=== PATIENT | male | born 1960 | race Caucasian/White ===

== ENCOUNTER 2020-06-17 10:25 | Outpatient (REF) | payer OTHER, SELFPAY ==
[2020-06-17 10:57] LABS: MANUAL DIFF FLAG NO
[2020-06-17 11:04] LABS: Basophils Percent Auto 0.3 % (0-2); Eosinophils Absolute Auto 0.4 X10*3/uL (0.0-0.4); Eosinophils Percent Auto 3.3 % (0-4); Hematocrit 49.2 % (42-52); Hemoglobin 15.7 g/dl (14.0-18.0); Imm Gran Abs Auto 0.02 X10*3/uL (0.00-0.03); Imm Gran Pct Auto 0.2 % (0.0-0.4); Lymphocytes Absolute Auto 4.5 X10*3/uL (1.2-4.9); Lymphocytes Percent Auto 39.8 % (20-40); Mean Corpuscular HGB Conc 31.9 g/dl (31.0-36.0); Mean Corpuscular Hemoglobin 29.1 pg (27.0-33.0); Mean Corpuscular Volume 91.1 fL (80-98); Mean Platelet Volume 10.6 fL (9.4-12.4); Monocytes Absolute Auto 0.9 X10*3/uL (0.1-1.2); Monocytes Percent Auto 7.8 % (2-11); Neutrophils Absolute Auto 5.5 X10*3/uL (2.0-8.3); Neutrophils Percent Auto 48.6 % (45-73); Platelet Count 239 X10*3/uL (160-400); Red Cell Distribution Width 13.1 % (11.0-16.0); White Blood Count 11.3 X10*3/uL (4.8-10.8)
[2020-06-17 11:29] LABS: Glucose Urine UA NEG (NEG); Leukocyte Esterase Urine NEG (NEG); Nitrite Urine NEG (NEG); PH 5.5 (5.0-8.0); Specific Gravity - Urine >= 1.030 (1.005-1.025); Urine Blood NEG (NEG); Urine Ketones NEG (NEG); Urine Protein NEG (NEG-TRACE)
[2020-06-17 11:32] LABS: Appearance Urine CLEAR; Color Urine YELLOW
[2020-06-17 11:52] LABS: PSA,Total (Free>4and<10) 2.39 ng/mL (0.00-4.00)
[2020-06-17 11:55] LABS: Alanine Aminotransferase 42 U/L (0-40); Albumin Level 4.4 g/dL (3.5-5.0); Alkaline Phosphatase 100 U/L (39-117); Anion Gap 14 (12-20); Aspartate Amino Transferase 30 U/L (5-37); Bilirubin Total 0.7 mg/dL (0.0-1.0); Blood Urea Nitrogen 18 mg/dL (9-16); Calcium 9.3 mg/dL (8.4-10.2); Carbon Dioxide 27 mmol/L (22-29); Chloride 104 mmol/L (96-108); Cholesterol 159 mg/dL; Estimated Glomerular Filt Rate > 60; Glucose Fasting 84 mg/dL (60-99); HDL Cholesterol 47 mg/dL; LDL Cholesterol Calculated 94 mg/dl; Potassium 4.4 mmol/L (3.3-5.1); Sodium 141 mmol/L (135-145); Total Protein 6.9 g/dL (6.5-8.0); Triglycerides 93 mg/dL
[2020-06-17 11:59] LABS: Creatinine Urine 141.21 mg/dL; Microalbum/Creatinine Ratio Ur 8.4 ug/mg cr
[2020-06-17 12:06] LABS: Estimated Average Glucose 117 mg/dL; Hemoglobin A1c % 5.7 %
[2020-06-17 13:03] LABS: Reflex LDLD? No
== END 2020-06-17 10:26 | disposition home or self-care (01) ==
LOC: HO.LNP 10:25
PROVIDERS: PCP Internal Medicine; Visit Provider Internal Medicine
DX: Z00.00 Encounter for general adult medical examination without abnormal findings (principal); Z12.5 Encounter for screening for malignant neoplasm of prostate; I10 Essential (primary) hypertension; E78.00 Pure hypercholesterolemia, unspecified; R73.03 Prediabetes
CPT/HCPCS: 80053; 80061; 81003; 82043; 83036; 84153; 85025

== ENCOUNTER 2020-12-16 10:25 | Outpatient (REF) | payer OTHER, SELFPAY ==
[2020-12-16 10:44] LABS: Alanine Aminotransferase 33 U/L (0-40); Albumin Level 4.2 g/dL (3.5-5.0); Alkaline Phosphatase 94 U/L (39-117); Aspartate Amino Transferase 21 U/L (5-37); Bilirubin Direct 0.2 mg/dL (0.0-0.5); Bilirubin Total 0.6 mg/dL (0.0-1.0); Cholesterol 143 mg/dL; Glucose Fasting 105 mg/dL (60-99); HDL Cholesterol 38 mg/dL; LDL Cholesterol Calculated 84 mg/dl; Total Protein 6.6 g/dL (6.5-8.0); Triglycerides 107 mg/dL
[2020-12-16 11:10] LABS: Estimated Average Glucose 120 mg/dL; Hemoglobin A1c % 5.8 %
[2020-12-16 11:34] LABS: Reflex LDLD? No
== END 2020-12-16 10:26 | disposition home or self-care (01) ==
LOC: HO.LNP 10:25
PROVIDERS: Visit Provider Internal Medicine
DX: E78.00 Pure hypercholesterolemia, unspecified (principal); R73.03 Prediabetes
CPT/HCPCS: 80061; 80076; 82947; 83036

== ENCOUNTER 2021-02-12 10:07 | Emergency (ER) | payer OTHER, SELFPAY ==
--- NOTE | 2021-02-12 | ECG_ITS ---
Test Reason : CHEST PAIN Blood Pressure : / mmHG Vent. Rate : 083 BPM Atrial Rate : 083 BPM P-R Int : 172 ms QRS Dur : 074 ms QT Int : 354 ms P-R-T Axes : 041 056 041 degrees QTc Int : 415 ms Normal sinus rhythm Normal ECG No previous ECGs available Referred By: Generic ED Physician Electronically Signed By:HELEN VALENZUELA
--- NOTE | ~2021-02-12 | XR_ITS ---
EXAMINATION: XR CHEST CLINICAL INFORMATION: Chest pain COMPARISON: None TECHNIQUE: 2 views of the chest were obtained. FINDINGS: There is no evidence of acute parenchymal disease, pneumothorax, or pleural effusion. Heart normal size. No evidence of pulmonary edema. XR/XR chest 2V IMPRESSION: No acute disease.
[2021-02-12 10:29] VITALS: BP 148/81; PULSE 90; RESP 18; TEMP 36.8; O2SAT 96; BMI 37.9
--- NOTE | 2021-02-12 10:52 | ED.CHESTPAIN ---
HPI - Chest Pain General Chief Complaint: Chest Pain Stated Complaint: chest pain Time Seen by Provider: 02/12/21 10:45 Source: patient Mode of arrival: ambulatory Limitations: no limitations History of Present Illness HPI narrative: 60-year-old male past medical history significant for hypertension hypercholesterolemia presenting to the emergency department with complaints of chest pain/tightness x5 days. Patient tells me that the chest pain started 5 days ago when he was driving, he states it started as a stabbing pain, but since then has felt like chest tightness. It is intermittent in nature, it does not radiate. He tells me it is a boring discomfort. He tells me right now he is not experiencing any pain but he does feel slight pressure to the right side of his chest. Patient has no cardiac history, no significant family history. Patient smokes 1 pack of cigarettes per week. He has no other complaints at this time. He denies shortness of breath, fevers, chills, weakness, lower extremity swelling, dizziness, headache. MD complaint: other (chest pressure ) Onset (ago): day(s) Timing of current episode: episodic Prior episodes: No Onset: during rest Pain location: right chest Pain radiation: none Severity: mild Quality: tightness Relieving factors: nothing Exacerbating factors: nothing Treatment prior to arrival: none Related Data Home Medications Medication Instructions Recorded Confirmed atorvastatin 40 mg tablet 40 mg PO DAILY 06/21/20 lisinopril 10 1 tab PO DAILY 06/21/20 mg-hydrochlorothiazide 12.5 mg tablet Previous Rx's Medication Instructions Recorded prednisone 20 mg tablet 20 mg PO DAILY 9 Days #18 tab 06/21/20 Allergies Allergy/AdvReac Type Severity Reaction Status Date / Time No Known Allergies Allergy Unverified 11/27/19 15:43 Review of Systems Review of Systems: Constitutional : No Weight loss, No Fever, No Chills, No Fatigue, No Malaise ENT/Mouth : No sore throat, No Rhinorrhea Eyes: No Eye Pain, No Swelling, No Redness Cardiovascular : + Chest Pain, No SOB, No Dyspnea on Exertion, No Orthopnea, No Edema, No Palpitations Respiratory : No Cough, No Sputum, No Wheezing Gastrointestinal : No Nausea, No Vomiting, No Diarrhea, No Constipation, No abdominal Pain, No Hematochezia, No Melena Genitourinary : No Dysuria, No Urinary Frequency, No Hematuria, Musculoskeletal : No joint pain, No Myalgias, No Joint Swelling Skin : No Skin Lesions, No rash Neuro : No Weakness, No Numbness, No Dizziness, No Headache All other systems reviewed and are negative [facility] Past Medical History Attestation statement: The following information was validated with the patient. Source: old records reviewed and nursing notes reviewed Medical History HTN (hypertension) Social History Social History Patient Tobacco Use Status: Current everyday Tobacco user Use of substances other than those prescribed or required for medical reasons: No Advance Directives: No Advance Directives Information Provided: Yes Physical Exam Vital Signs: Vital Signs: Last Vital Signs Temp 98.2 F 02/12/21 10:29 Pulse 90 02/12/21 10:29 Resp 18 02/12/21 10:29 BP 148/81 H 02/12/21 10:29 Pulse Ox 96 02/12/21 10:29 BMI result Body Mass Index 37.9 Vss Appearance: Alert.? Oriented X3.? No acute distress.? Head: Normocephalic, atraumatic, no step-offs or deformities Eyes: Pupils equal, round and reactive to light.? ENT: Pharynx normal.? Neck: Normal inspection.? Neck supple.? CVS: Normal heart rate and rhythm.? Pulses normal.? Respiratory: No respiratory distress.? Breath sounds normal.? Abdomen: Soft and nontender.? Skin: Skin warm and dry.? Normal skin color.? Normal skin turgor.? Extremities: No lower extremity edema.? No calf ttp. 5/5 strength to bilateral upper and lower extremities Back: No midline tenderness, no C-spine tenderness, full range of motion, no CVA tenderness bilaterally Neuro: Oriented X 3.? No motor deficit.? No sensory deficit. Course Reevaluation(s) Reevaluation #1: EKG with no signs of acute ischemia. No leukocytosis, no anemia. No electrolyte abnormalities. Troponin negative, BNP negative. This is likely chest pain not associated with acute coronary syndrome and not cardiac. This could be an anterior chest wall strain. Patient not having pain at this time. He should follow-up with his PCP. Safe for discharge home. Time: 10:57 Reevaluation #2: Chest x-ray negative. At this time patient is not complaining of chest pain. Safe for discharge home Time: 12:51 MDM - Chest Pain MDM Narrative Medical decision making narrative: 1050 60 YO M pmhx HTN, hypercholesterolemia presenting to the emergency department with complaints of intermittent right-sided chest pain that is nonradiating, and boring in nature X5 days. At this time he is having chest pressure no pain. Physical examination is benign Plan at this time is to obtain basic labs, troponin, BNP, EKG. Medical Records Data Attestation: I reviewed the patient's medical records. Lab Data Attestation: I reviewed the patient's lab results. Result diagrams: 02/12/21 11:14 02/12/21 11:14 Labs: Lab Results 02/12/21 02/12/21 02/12/21 Range/Units 11:14 11:14 11:14 WBC 9.8 (4.8-10.8) X10*3/uL RBC 5.05 (4.60-5.80) X10*6/uL Hgb 15.0 (14.0-18.0) g/dl Hct 45.4 (42.0-52.0) % MCV 89.9 (80.0-98.0) fL MCH 29.7 (27.0-33.0) pg MCHC 33.0 (31.0-36.0) g/dl RDW 13.1 (11.0-16.0) % Plt Count 228 (160-400) X10*3/uL MPV 9.9 (9.4-12.4) fL Immature Gran % (Auto) 0.2 (0.0-0.4) % Neut % (Auto) 71.4 (45-73) % Lymph % (Auto) 18.5 L (20-40) % Thomas % (Auto) 7.0 (2-11) % Eos % (Auto) 2.8 (0-4) % Baso % (Auto) 0.1 (0-2) % Lymph # (Auto) 1.8 (1.2-4.9) X10*3/uL Thomas # (Auto) 0.7 (0.1-1.2) X10*3/uL Eos # (Auto) 0.3 (0.0-0.4) X10*3/uL Baso # (Auto) 0.0 (0.0-0.2) X10*3/uL Abs Immat Gran (auto) 0.02 (0.00-0.03) X10*3/uL Absolute Neuts (auto) 7.0 (2.0-8.3) x10*3/uL Absolute Nucleated RBC 0.000 (0.0-0.012) X10*3/uL Nucleated RBC % (auto) 0.0 (0.0-0.2) /100WBC Sodium 139 (135-145) mmol/L Potassium 4.4 (3.3-5.1) mmol/L Chloride 104 (96-108) mmol/L Carbon Dioxide 27 (22-29) mmol/L Anion Gap 12 (12-20) BUN 14 (9-16) mg/dL Creatinine 1.05 (0.5-1.4) mg/dL Estim Creat Clear Calc 84.5 Estimated GFR > 60 Random Glucose 111 (60-115) mg/dL Calcium 10.1 D (8.4-10.2) mg/dL Magnesium 1.8 (1.6-2.6) mg/dL Total Bilirubin 0.7 (0.0-1.0) mg/dL AST 26 (5-37) U/L ALT 34 (0-40) U/L Alkaline Phosphatase 107 (39-117) U/L Troponin I High Sens < 3.5 (<3.5-35.0) ng/L B-Natriuretic Peptide 10 (<100) pg/mL Total Protein 7.1 (6.5-8.0) g/dL Albumin 4.4 (3.5-5.0) g/dL COVID-19 (GIOVANNI) (Negative) COVID-19 Clin Com 02/12/21 Range/Units 11:14 WBC (4.8-10.8) X10*3/uL RBC (4.60-5.80) X10*6/uL Hgb (14.0-18.0) g/dl Hct (42.0-52.0) % MCV (80.0-98.0) fL MCH (27.0-33.0) pg MCHC (31.0-36.0) g/dl RDW (11.0-16.0) % Plt Count (160-400) X10*3/uL MPV (9.4-12.4) fL Immature Gran % (Auto) (0.0-0.4) % Neut % (Auto) (45-73) % Lymph % (Auto) (20-40) % Thomas % (Auto) (2-11) % Eos % (Auto) (0-4) % Baso % (Auto) (0-2) % Lymph # (Auto) (1.2-4.9) X10*3/uL Thomas # (Auto) (0.1-1.2) X10*3/uL Eos # (Auto) (0.0-0.4) X10*3/uL Baso # (Auto) (0.0-0.2) X10*3/uL Abs Immat Gran (auto) (0.00-0.03) X10*3/uL Absolute Neuts (auto) (2.0-8.3) x10*3/uL Absolute Nucleated RBC (0.0-0.012) X10*3/uL Nucleated RBC % (auto) (0.0-0.2) /100WBC Sodium (135-145) mmol/L Potassium (3.3-5.1) mmol/L Chloride (96-108) mmol/L Carbon Dioxide (22-29) mmol/L Anion Gap (12-20) BUN (9-16) mg/dL Creatinine (0.5-1.4) mg/dL Estim Creat Clear Calc Estimated GFR Random Glucose (60-115) mg/dL Calcium (8.4-10.2) mg/dL Magnesium (1.6-2.6) mg/dL Total Bilirubin (0.0-1.0) mg/dL AST (5-37) U/L ALT (0-40) U/L Alkaline Phosphatase (39-117) U/L Troponin I High Sens (<3.5-35.0) ng/L B-Natriuretic Peptide (<100) pg/mL Total Protein (6.5-8.0) g/dL Albumin (3.5-5.0) g/dL COVID-19 (GIOVANNI) Negative (Negative) COVID-19 Clin Com See Note Imaging Data Chest x-ray: Attestation: I personally reviewed and interpreted this imaging study as follows: Radiologist's impression: FINDINGS: There is no evidence of acute parenchymal disease, pneumothorax, or pleural effusion. Heart normal size. No evidence of pulmonary edema. XR/XR chest 2V IMPRESSION: No acute disease. ECG Data ECG #1: Attestation: I personally reviewed and interpreted this ECG as follows: ECG interpretation date: 02/12/21 ECG interpretation time: : Prior ECG tracings: not available for review Interpretation: Ventricular rate of 83, AK normal, QRS normal, QT/QTC normal. EKG shows normal sinus rhythm. No ST elevations or inversions. No acute ischemia. No previous to compare Critical Care Time Critical Care Time Critical Care Time: No Discharge Plan Discharge Clinical Impression: Chest pain not due to acute coronary syndrome Patient Disposition: Home, Self-Care Instructions: Chest Pain (ED) Additional Instructions: Take your medications as prescribed. Follow-up with your primary care provider this week. Return to the emergency department with new or worsening symptoms. In case of emergency call 911 Prescriptions: No Action lisinopril-hydrochlorothiazide 10-12.5 mg tablet 1 tab PO DAILY RF: 0 atorvastatin 40 mg tablet 40 mg PO DAILY RF: 0 prednisone 20 mg tablet 20 mg PO DAILY 9 Days Qty: 18 RF: 0 Referrals: Levy Meier MD [Primary Care Provider] - 2 days Stand Alone Forms: Work/School Release
[2021-02-12 11:21] LABS: MANUAL DIFF FLAG NO
[2021-02-12 11:23] LABS: Basophils Percent Auto 0.1 % (0-2); Eosinophils Absolute Auto 0.3 X10*3/uL (0.0-0.4); Eosinophils Percent Auto 2.8 % (0-4); Hematocrit 45.4 % (42.0-52.0); Imm Gran Abs Auto 0.02 X10*3/uL (0.00-0.03); Imm Gran Pct Auto 0.2 % (0.0-0.4); Lymphocytes Absolute Auto 1.8 X10*3/uL (1.2-4.9); Lymphocytes Percent Auto 18.5 % (20-40); Mean Corpuscular Hemoglobin 29.7 pg (27.0-33.0); Mean Corpuscular Volume 89.9 fL (80.0-98.0); Mean Platelet Volume 9.9 fL (9.4-12.4); Monocytes Absolute Auto 0.7 X10*3/uL (0.1-1.2); Neutrophils Percent Auto 71.4 % (45-73); Platelet Count 228 X10*3/uL (160-400); Red Blood Count 5.05 X10*6/uL (4.60-5.80); Red Cell Distribution Width 13.1 % (11.0-16.0); White Blood Count 9.8 X10*3/uL (4.8-10.8)
[2021-02-12 11:40] VITALS: PULSE 73
[2021-02-12 11:47] LABS: COVID-19 Test Negative (Negative); IDNOW Serial# 55D5AD1C
[2021-02-12 12:03] LABS: Alanine Aminotransferase 34 U/L (0-40); Albumin Level 4.4 g/dL (3.5-5.0); Alkaline Phosphatase 107 U/L (39-117); Anion Gap 12 (12-20); Aspartate Amino Transferase 26 U/L (5-37); Bilirubin Total 0.7 mg/dL (0.0-1.0); Blood Urea Nitrogen 14 mg/dL (9-16); Calcium 10.1 mg/dL (8.4-10.2); Carbon Dioxide 27 mmol/L (22-29); Chloride 104 mmol/L (96-108); Creatinine Clr Calc Pharmacy 84.5; Estimated Glomerular Filt Rate > 60; Glucose Random 111 mg/dL (60-115); Magnesium 1.8 mg/dL (1.6-2.6); Potassium 4.4 mmol/L (3.3-5.1); Sodium 139 mmol/L (135-145); Total Protein 7.1 g/dL (6.5-8.0)
[2021-02-12 12:06] LABS: B Type Natriuretic Peptide 10 pg/mL (<100); Troponin-I High Sensitivity < 3.5 ng/L (<3.5-35.0)
[2021-02-12 13:41] VITALS: BP 114/70; PULSE 70; RESP 16
== END 2021-02-12 13:41 | disposition home or self-care (01) ==
PROVIDERS: Physician Assistant; Emergency Provider Emergency Medicine; PCP Internal Medicine
DX: R07.89 Other chest pain (principal); Z20.822 Contact with and (suspected) exposure to COVID-19; I10 Essential (primary) hypertension; F17.200 Nicotine dependence, unspecified, uncomplicated
CPT/HCPCS: 36415; 71046; 80053; 83735; 83880; 84484; 85025; 87635; 93005; 99284

== ENCOUNTER 2021-06-21 10:50 | Outpatient (REF) | payer OTHER, SELFPAY ==
[2021-06-21 10:59] LABS: MANUAL DIFF FLAG NO
[2021-06-21 11:39] LABS: Basophils Percent Auto 0.3 % (0-2); Eosinophils Absolute Auto 0.4 X10*3/uL (0.0-0.4); Imm Gran Abs Auto 0.04 X10*3/uL (0.00-0.03); Imm Gran Pct Auto 0.4 % (0.0-0.4); Lymphocytes Absolute Auto 2.7 X10*3/uL (1.2-4.9); Mean Corpuscular HGB Conc 32.6 g/dl (31.0-36.0); Mean Corpuscular Hemoglobin 29.4 pg (27.0-33.0); Mean Corpuscular Volume 90.2 fL (80.0-98.0); Mean Platelet Volume 10.4 fL (9.4-12.4); Monocytes Absolute Auto 0.7 X10*3/uL (0.1-1.2); Monocytes Percent Auto 8.2 % (2-11); Neutrophils Absolute Auto 5.2 x10*3/uL (2.0-8.3); Neutrophils Percent Auto 57.1 % (45-73); Platelet Count 256 X10*3/uL (160-400); Red Cell Distribution Width 12.9 % (11.0-16.0)
[2021-06-21 12:00] LABS: Appearance Urine CLEAR; Color Urine YELLOW; Glucose Urine UA NEG (NEG); Leukocyte Esterase Urine NEG (NEG); Nitrite Urine NEG (NEG); Specific Gravity - Urine >= 1.030 (1.005-1.025); Urine Blood NEG (NEG); Urine Ketones NEG (NEG); Urine Protein NEG (NEG-TRACE)
[2021-06-21 12:08] LABS: Alanine Aminotransferase 40 U/L (0-40); Albumin Level 4.2 g/dL (3.5-5.0); Alkaline Phosphatase 98 U/L (39-117); Anion Gap 11 (12-20); Aspartate Amino Transferase 30 U/L (5-37); Bilirubin Total 0.7 mg/dL (0.0-1.0); Blood Urea Nitrogen 14 mg/dL (9-16); Calcium 9.2 mg/dL (8.4-10.2); Carbon Dioxide 26 mmol/L (22-29); Chloride 105 mmol/L (96-108); Cholesterol 134 mg/dL; Estimated Glomerular Filt Rate > 60; Glucose Random 106 mg/dL (60-115); HDL Cholesterol 36 mg/dL; LDL Cholesterol Calculated 78 mg/dl; Sodium 138 mmol/L (135-145); Total Protein 6.7 g/dL (6.5-8.0); Triglycerides 100 mg/dL
[2021-06-21 12:16] LABS: Estimated Average Glucose 123 mg/dL; Hemoglobin A1c % 5.9 %
== END 2021-06-21 10:51 | disposition home or self-care (01) ==
LOC: HO.LNP 10:50
PROVIDERS: Visit Provider Internal Medicine
DX: Z00.00 Encounter for general adult medical examination without abnormal findings (principal); I10 Essential (primary) hypertension; R73.03 Prediabetes; E78.00 Pure hypercholesterolemia, unspecified; Z12.5 Encounter for screening for malignant neoplasm of prostate
CPT/HCPCS: 80053; 80061; 81003; 82043; 83036; 84153; 85025

== ENCOUNTER 2021-12-27 11:23 | Outpatient (REF) | payer OTHER, SELFPAY ==
[2021-12-27 12:32] LABS: Estimated Average Glucose 126 mg/dL
[2021-12-27 12:42] LABS: Alanine Aminotransferase 49 U/L (0-40); Albumin Level 4.4 g/dL (3.5-5.0); Alkaline Phosphatase 113 U/L (39-117); Aspartate Amino Transferase 29 U/L (5-37); Bilirubin Direct 0.2 mg/dL (0.0-0.5); Bilirubin Total 0.7 mg/dL (0.0-1.0); Cholesterol 171 mg/dL; HDL Cholesterol 41 mg/dL; LDL Cholesterol Calculated 104 mg/dl; Total Protein 7.1 g/dL (6.5-8.0); Triglycerides 134 mg/dL
[2021-12-27 13:18] LABS: Reflex LDLD? No
== END 2021-12-27 11:24 | disposition home or self-care (01) ==
LOC: HO.LNP 11:23
PROVIDERS: Visit Provider Internal Medicine
DX: R73.09 Other abnormal glucose (principal); E78.00 Pure hypercholesterolemia, unspecified
CPT/HCPCS: 80061; 80076; 82043; 83036

== ENCOUNTER 2022-06-29 10:31 | Outpatient (REF) | payer OTHER, SELFPAY ==
[2022-06-29 10:36] LABS: MANUAL DIFF FLAG NO
[2022-06-29 11:05] LABS: Basophils Percent Auto 0.3 % (0-2); Eosinophils Absolute Auto 0.4 X10*3/uL (0.0-0.4); Eosinophils Percent Auto 3.4 % (0-4); Hematocrit 47.7 % (42.0-52.0); Hemoglobin 15.7 g/dl (14.0-18.0); Imm Gran Abs Auto 0.03 X10*3/uL (0.00-0.03); Imm Gran Pct Auto 0.3 % (0.0-0.4); Lymphocytes Absolute Auto 2.9 X10*3/uL (1.2-4.9); Lymphocytes Percent Auto 28.2 % (20-40); Mean Corpuscular HGB Conc 32.9 g/dl (31.0-36.0); Mean Corpuscular Hemoglobin 29.5 pg (27.0-33.0); Mean Corpuscular Volume 89.5 fL (80.0-98.0); Mean Platelet Volume 10.6 fL (9.4-12.4); Monocytes Absolute Auto 0.9 X10*3/uL (0.1-1.2); Monocytes Percent Auto 8.4 % (2-11); Neutrophils Percent Auto 59.4 % (45-73); Platelet Count 277 X10*3/uL (160-400); Red Blood Count 5.33 X10*6/uL (4.60-5.80); Red Cell Distribution Width 13.4 % (11.0-16.0); White Blood Count 10.2 X10*3/uL (4.8-10.8)
[2022-06-29 11:14] LABS: Estimated Average Glucose 126 mg/dL
[2022-06-29 11:22] LABS: Appearance Urine Clear; Color Urine Yellow; Glucose Urine UA Negative (Negative); Leukocyte Esterase Urine Negative (Negative); Nitrite Urine Negative (Negative); Specific Gravity - Urine >= 1.030 (1.005-1.025); UMIC TRIGGER UACC YES; Urine Blood Trace (Negative); Urine Ketones Negative (Negative); Urine Protein Negative (Neg-Trace)
[2022-06-29 11:28] LABS: Bacteria Urine None Seen (None Seen); Hyaline Casts Urine 0-2 /LPF (0-2); RBC Urine 0-2 /HPF (0-2); Squamous Epithelial Cell Urine 0-2 /HPF (0-2); WBC Urine 0-5 /HPF (0-5)
[2022-06-29 11:33] LABS: Alanine Aminotransferase 53 U/L (0-40); Albumin Level 4.3 g/dL (3.5-5.0); Alkaline Phosphatase 117 U/L (39-117); Anion Gap 12 (12-20); Aspartate Amino Transferase 26 U/L (5-37); Bilirubin Total 0.9 mg/dL (0.0-1.0); Blood Urea Nitrogen 15 mg/dL (9-16); Calcium 9.4 mg/dL (8.4-10.2); Carbon Dioxide 27 mmol/L (22-29); Chloride 105 mmol/L (96-108); Cholesterol 168 mg/dL; Estimated Glomerular Filt Rate > 60; Glucose Fasting 114 mg/dL (60-99); HDL Cholesterol 40 mg/dL; LDL Cholesterol Calculated 110 mg/dl; Potassium 4.2 mmol/L (3.3-5.1); Sodium 140 mmol/L (135-145); Total Protein 6.6 g/dL (6.5-8.0); Triglycerides 91 mg/dL
[2022-06-29 11:34] LABS: PSA,Total (Free>4and<10) 2.45 ng/mL (0.00-4.00)
[2022-06-29 12:30] LABS: Creatinine Urine 207.71 mg/dL; Microalbum/Creatinine Ratio Ur 3.8 ug/mg cr
== END 2022-06-29 10:32 | disposition home or self-care (01) ==
LOC: HO.LNP 10:31
PROVIDERS: Visit Provider Internal Medicine
DX: Z00.00 Encounter for general adult medical examination without abnormal findings (principal); I10 Essential (primary) hypertension; R73.09 Other abnormal glucose; E78.00 Pure hypercholesterolemia, unspecified
CPT/HCPCS: 80053; 80061; 81001; 82043; 83036; 84153; 85025

== ENCOUNTER 2022-12-28 11:11 | Outpatient (REF) | payer OTHER, SELFPAY ==
[2022-12-28 12:46] LABS: Estimated Average Glucose 120 mg/dL; Hemoglobin A1c % 5.8 % (<6.0)
[2022-12-28 13:14] LABS: Alanine Aminotransferase 53 U/L (0-40); Alkaline Phosphatase 129 U/L (39-117); Aspartate Amino Transferase 39 U/L (5-37); Bilirubin Direct 0.2 mg/dL (0.0-0.5); Bilirubin Total 0.4 mg/dL (0.0-1.0); Total Protein 7.6 g/dL (6.5-8.0)
[2022-12-28 13:41] LABS: Cholesterol 164 mg/dL (<200); HDL Cholesterol 41 mg/dL (>40); LDL Cholesterol Calculated 102 mg/dL (<100); Triglycerides 108 mg/dL (<150)
[2022-12-28 13:42] LABS: Glucose Fasting 58 mg/dL (60-99)
[2022-12-28 13:55] LABS: Reflex LDLD? No
== END 2022-12-28 11:12 | disposition home or self-care (01) ==
LOC: HO.LNP 11:11
PROVIDERS: Visit Provider Internal Medicine
DX: R73.09 Other abnormal glucose (principal); E78.00 Pure hypercholesterolemia, unspecified
CPT/HCPCS: 80061; 80076; 82947; 83036

== ENCOUNTER 2023-07-05 10:55 | Outpatient (REF) | payer OTHER, SELFPAY ==
[2023-07-05 10:58] LABS: MANUAL DIFF FLAG NO
[2023-07-05 11:25] LABS: Appearance Urine Clear; Color Urine Yellow; Glucose Urine UA Negative (Negative); Leukocyte Esterase Urine Negative (Negative); Nitrite Urine Negative (Negative); PH 5.5 (5.0-9.0); Urine Blood Negative (Negative); Urine Ketones Negative (Negative); Urine Protein Negative (Neg-Trace)
[2023-07-05 11:27] LABS: Basophils Percent Auto 0.2 % (0-2); Eosinophils Absolute Auto 0.5 X10*3/uL (0.0-0.4); Eosinophils Percent Auto 5.5 % (0-4); Hematocrit 47.3 % (42.0-52.0); Hemoglobin 15.6 g/dl (14.0-18.0); Imm Gran Abs Auto 0.02 X10*3/uL (0.00-0.03); Imm Gran Pct Auto 0.2 % (0.0-0.4); Lymphocytes Absolute Auto 2.9 X10*3/uL (1.2-4.9); Lymphocytes Percent Auto 32.1 % (20-40); Mean Corpuscular Hemoglobin 29.3 pg (27.0-33.0); Mean Corpuscular Volume 88.9 fL (80.0-98.0); Mean Platelet Volume 10.4 fL (9.4-12.4); Monocytes Absolute Auto 0.8 X10*3/uL (0.1-1.2); Monocytes Percent Auto 8.6 % (2-11); Neutrophils Absolute Auto 4.8 x10*3/uL (2.0-8.3); Neutrophils Percent Auto 53.4 % (45-73); Platelet Count 241 X10*3/uL (160-400); Red Blood Count 5.32 X10*6/uL (4.60-5.80); Red Cell Distribution Width 13.1 % (11.0-16.0); White Blood Count 8.9 X10*3/uL (4.8-10.8)
[2023-07-05 11:30] LABS: Alanine Aminotransferase 55 U/L (0-40); Albumin Level 4.1 g/dL (3.5-5.0); Alkaline Phosphatase 114 U/L (39-117); Anion Gap 9 (12-20); Aspartate Amino Transferase 26 U/L (5-37); Bilirubin Total 0.6 mg/dL (0.0-1.0); Blood Urea Nitrogen 13 mg/dL (9-16); Calcium 9.2 mg/dL (8.4-10.2); Carbon Dioxide 31 mmol/L (22-29); Chloride 105 mmol/L (96-108); Cholesterol 139 mg/dL (<200); Estimated Glomerular Filt Rate > 60; Glucose Fasting 110 mg/dL (60-99); HDL Cholesterol 37 mg/dL (>40); LDL Cholesterol Calculated 77 mg/dL (<100); Potassium 3.9 mmol/L (3.3-5.1); Sodium 141 mmol/L (135-145); Triglycerides 127 mg/dL (<150)
[2023-07-05 11:31] LABS: Bacteria Urine None Seen (None Seen); Hyaline Casts Urine 0-2 /LPF (0-2); RBC Urine 0-2 /HPF (0-2); Squamous Epithelial Cell Urine 0-2 /HPF (0-2); WBC Urine 0-5 /HPF (0-5)
[2023-07-05 11:45] LABS: Estimated Average Glucose 123 mg/dL; Hemoglobin A1C 151.7134 umol/L; Hemoglobin A1c % 5.9 % (<6.0)
[2023-07-05 11:50] LABS: PSA,Total (Free>4and<10) 2.45 ng/mL (0.00-4.00)
[2023-07-05 12:15] LABS: Creatinine Urine 148.36 mg/dL; Microalbum/Creatinine Ratio Ur 4.7 ug/mg cr (<30)
== END 2023-07-05 10:56 | disposition home or self-care (01) ==
LOC: HO.LNP 10:55
PROVIDERS: Visit Provider Internal Medicine
DX: Z00.00 Encounter for general adult medical examination without abnormal findings (principal); Z12.5 Encounter for screening for malignant neoplasm of prostate; E78.00 Pure hypercholesterolemia, unspecified; I10 Essential (primary) hypertension; R73.03 Prediabetes
CPT/HCPCS: 80053; 80061; 81001; 82043; 82570; 83036; 84153; 85025

== ENCOUNTER 2024-01-11 11:11 | Outpatient (REF) | payer OTHER, SELFPAY ==
[2024-01-11 12:12] LABS: Estimated Average Glucose 123 mg/dL; Hemoglobin A1c % 5.9 % (<6.0); Total Hemoglobin (HGBA1C) 2388.0852 umol/L
[2024-01-11 13:24] LABS: Alanine Aminotransferase 65 U/L (0-40); Albumin Level 4.1 g/dL (3.5-5.0); Alkaline Phosphatase 108 U/L (39-117); Aspartate Amino Transferase 43 U/L (5-37); Bilirubin Direct 0.2 mg/dL (0.0-0.5); Bilirubin Total 0.7 mg/dL (0.0-1.0); Cholesterol 150 mg/dL (<200); Glucose Fasting 107 mg/dL (60-99); HDL Cholesterol 39 mg/dL (>40); LDL Cholesterol Calculated 89 mg/dL (<100); Triglycerides 114 mg/dL (<150)
[2024-01-11 13:59] LABS: Reflex LDLD? No
== END 2024-01-11 11:12 | disposition home or self-care (01) ==
LOC: HO.LNP 11:11
PROVIDERS: Visit Provider Internal Medicine
DX: E78.00 Pure hypercholesterolemia, unspecified (principal); R73.09 Other abnormal glucose
CPT/HCPCS: 80061; 80076; 82947; 83036

== ENCOUNTER 2024-07-10 10:08 | Outpatient (REF) | payer MEDICARE, MEDICAID, SELFPAY ==
[2024-07-10 10:15] LABS: MANUAL DIFF FLAG NO
[2024-07-10 10:53] LABS: Basophils Percent Auto 0.1 % (0-2); Eosinophils Absolute Auto 0.5 X10*3/uL (0.0-0.4); Eosinophils Percent Auto 6.5 % (0-4); Hematocrit 45.5 % (42.0-52.0); Hemoglobin 15.2 g/dl (14.0-18.0); Imm Gran Abs Auto 0.02 X10*3/uL (0.00-0.03); Imm Gran Pct Auto 0.2 % (0.0-0.4); Lymphocytes Absolute Auto 3.1 X10*3/uL (1.2-4.9); Lymphocytes Percent Auto 37.7 % (20-40); Mean Corpuscular HGB Conc 33.4 g/dl (31.0-36.0); Mean Corpuscular Hemoglobin 29.6 pg (27.0-33.0); Mean Corpuscular Volume 88.5 fL (80.0-98.0); Mean Platelet Volume 9.8 fL (9.4-12.4); Monocytes Absolute Auto 0.7 X10*3/uL (0.1-1.2); Monocytes Percent Auto 8.5 % (2-11); Neutrophils Absolute Auto 3.9 x10*3/uL (2.0-8.3); Platelet Count 264 X10*3/uL (160-400); Red Blood Count 5.14 X10*6/uL (4.60-5.80); Red Cell Distribution Width 12.7 % (11.0-16.0); White Blood Count 8.3 X10*3/uL (4.8-10.8)
[2024-07-10 11:01] LABS: Estimated Average Glucose 131 mg/dL; Hemoglobin A1C 174.6066 umol/L; Hemoglobin A1c % 6.2 % (<6.0); Total Hemoglobin (HGBA1C) 3992.4276 umol/L
[2024-07-10 11:04] LABS: Appearance Urine Clear; Color Urine Yellow; Glucose Urine UA Negative (Negative); Leukocyte Esterase Urine Negative (Negative); Nitrite Urine Negative (Negative); PH 5.5 (5.0-9.0); Specific Gravity - Urine 1.015 (1.005-1.025); Urine Blood Negative (Negative); Urine Ketones Negative (Negative); Urine Protein Negative (Neg-Trace)
[2024-07-10 11:09] LABS: Bacteria Urine None Seen (None Seen); Hyaline Casts Urine 0-2 /LPF (0-2); RBC Urine 0-2 /HPF (0-2); Squamous Epithelial Cell Urine 0-2 /HPF (0-2); WBC Urine 0-5 /HPF (0-5)
[2024-07-10 11:21] LABS: Creatinine Urine 106.62 mg/dL; Microalbum/Creatinine Ratio Ur 15.9 ug/mg cr (<30)
[2024-07-10 11:26] LABS: Alanine Aminotransferase 141 U/L (0-40); Alkaline Phosphatase 109 U/L (39-117); Anion Gap 13 (12-20); Aspartate Amino Transferase 70 U/L (5-37); Bilirubin Total 0.8 mg/dL (0.0-1.0); Blood Urea Nitrogen 15 mg/dL (9-16); Carbon Dioxide 24 mmol/L (22-29); Chloride 105 mmol/L (96-108); Cholesterol 138 mg/dL (<200); Estimated Glomerular Filt Rate > 60; Glucose Fasting 110 mg/dL (60-99); HDL Cholesterol 36 mg/dL (>40); LDL Cholesterol Calculated 78 mg/dL (<100); PSA,Total (Free>4and<10) 3.85 ng/mL (0.00-4.00); Potassium 4.3 mmol/L (3.3-5.1); Sodium 138 mmol/L (135-145); Total Protein 6.7 g/dL (6.5-8.0); Triglycerides 123 mg/dL (<150)
== END 2024-07-10 10:09 | disposition home or self-care (01) ==
LOC: HO.LNP 10:08
PROVIDERS: Visit Provider Internal Medicine
DX: Z00.00 Encounter for general adult medical examination without abnormal findings (principal); Z12.5 Encounter for screening for malignant neoplasm of prostate; I10 Essential (primary) hypertension; R73.03 Prediabetes; E78.00 Pure hypercholesterolemia, unspecified
CPT/HCPCS: 80053; 80061; 81001; 82043; 82570; 83036; 84153; 85025

== ENCOUNTER 2024-10-17 11:49 | Outpatient (REF) | payer MEDICARE, SELFPAY ==
--- OUTSIDE RECORDS SUMMARY | 2024-08-05 06:25 | XMS_ITS ---
Author Organization Levy Meier MD Address [address] [place] [phone] Care Team Providers Care Coating Machine Operator Helper Name Role Phone Levy Meier Primary Care Provider [phone] REASON FOR VISIT refill Medications Medication SIG (Take, Route, Frequency, Duration) Notes Start Date End Date Status Lisinopril-hydroCHLOROthia zide 10-12.5 MG TAKE 1 TABLET BY MOUTH ONCE DAILY Orally Once a day for 90 days Active Encounters Encounter Location Date Provider Diagnosis Levy Meier MD [facility] [address] [place] [phone] 2024 Levy Meier Essential hypertension I10 Assessments Encounter Date Diagnosis (ICD Code) Assessment Notes Treatment Notes Treatment Clinical Notes Section Notes 2024 Essential hypertension (ICD-10 - I10) Plan Of Treatment Medication Medication Name Sig Start Date Stop Date Notes Lisinopril-hydroCHLOROthiazi de 10-12.5 MG TAKE 1 TABLET BY MOUTH ONCE DAILY Orally Once a day for 90 days Next Appt Details Provider Name:Levy correa, 01/12/2025 07:15:00 AM, [address] [place] [address], [address], [phone], Provider Name:Levy correa, 01/16/2025 10:15:00 AM, [address] [place] [address], [address], [phone], Provider Name:Levy Trotter ier, 07/16/2025 07:15:00 AM, [address], [address], [place], [phone], Provider Name:Levy Trotter ier, 07/23/2025 08:30:00 AM, [address], [address], [place], [phone], Progress Notes * Alexei NICEDOB:1960 (64 yo M)Acc No.[id number]:2024 Patient: Debbi Alexei BALLESTEROS :1960 A ge:64 Y S ex:Male Address: [address], [place] [address] * Refills Refill Lisinopril-hydroCHLOROthiazide Tablet, 10-12.5 MG, Orally, 90, TAKE 1 TABLET BY MOUTH ONCE DAILY, Once a day, 90 days, Refills=3 * true * Date: Generated for Geneva corado/Veronica/Lukasransmitting on: 0 10/17/2024 11:51 AM EDT
--- OUTSIDE RECORDS SUMMARY | 2024-10-17 11:52 | XMS_ITS | Patient Health Record ---
Author Organization [facility] Address [address] [place] [phone] Care Team Providers Care Automotive Painter Helper Name Role Phone Cesar Reyes Jr [phone] Reason For Referral No Information Plan Of Treatment No Information
[2024-10-17 12:26] LABS: Alanine Aminotransferase 29 U/L (0-40); Albumin Level 4.4 g/dL (3.5-5.0); Alkaline Phosphatase 110 U/L (39-117); Aspartate Amino Transferase 33 U/L (5-37); Cholesterol 148 mg/dL (<200); HDL Cholesterol 39 mg/dL (>40); Total Protein 7.1 g/dL (6.5-8.0); Triglycerides 106 mg/dL (<150)
[2024-10-17 12:37] LABS: PSA,Total (Free>4and<10) 3.01 ng/mL (0.00-4.00)
== END 2024-10-17 11:50 | disposition home or self-care (01) ==
LOC: HO.LNP 11:49
PROVIDERS: Visit Provider Internal Medicine
DX: Z12.5 Encounter for screening for malignant neoplasm of prostate (principal); R79.89 Other specified abnormal findings of blood chemistry; R97.20 Elevated prostate specific antigen [PSA]
CPT/HCPCS: 80061; 80076; 84153

== ENCOUNTER 2025-01-12 10:24 | Outpatient (REF) | payer MEDICARE, SELFPAY ==
--- OUTSIDE RECORDS SUMMARY | 2024-01-17 02:45 | XMS_ITS ---
Author Organization Levy Meier MD Address [address] [place], [place] [id number] Care Team Providers Care Accounts Payables Clerk Name Role Phone Levy Meier Primary Care Provider [phone] Allergies No Known Allergies REASON FOR VISIT 6 MO F/U Medications Medication SIG (Take, Route, Frequency, Duration) Notes Start Date End Date Status Ibuprofen 800 MG 1 tablet Orally Thre e times a day for 14 days 03/30/2016 Not-Taki ng Lisinopril-hydroCHLOROthi azide 10-12.5 MG TAKE 1 TABLET BY MOUTH ONCE DAILY Active Gabapentin 100 MG 1 capsule Orally Thr ee times a day for 30 day(s) Not-Taking Atorvastatin Calcium 40 MG TAKE 1 TABLET BY MOUTH ONCE DAILY Active Aspir-Low 81 MG 1 tablet Orally Once a day for 30 day(s) Active oxyCODONE HCl 5 MG 1 tablet as needed Orally every 6 hrs Not-Taking Vital Signs Blood pressure systolic 108 mm Hg 01/17/20 24 Blood pressure diastolic 64 mm Hg 024 Height 67 in 01/17/2024 Weight 228 lbs 01/17/2024 BMI 35.71 kg/m2 01/17/2024 weight is down 3 pounds sin e 5-2-24 Encounters Encounter Location Date Provider Diagnosis Levy Meier MD [address] [place], [place] [phone] 01/17/2024 Levy Meier Synovial cyst M71.30 ; Pure hypercholesterolemia E78.00 ; Prediabetes R73.09 and Essential hypertension I10 Assessments Encounter Date Diagnosis (ICD Code) Assessment Notes Treatment Notes Treatment Clinical Notes Section Notes 01/17/2024 Synovial cyst (ICD-1 0 - M71.30) no treatment needed 01/17/2024 Pure hypercholesterolemia (ICD-10 - E78.00) labs reviewed, will continue current regiment 01/17/2024 Prediabetes (ICD-10 - R73.09) continue with weight loss, no meds needed at this time 01/17/2024 Essential hypertensi on (ICD-10 - I10) stable, will continue current regiment Plan Of Treatment Medication Medication Name Sig Start Date Stop Date Notes Lisinopril-hydroCHLOROthiazi de 10-12.5 MG TAKE 1 TABLET BY MOUTH ONCE DAILY Atorvastatin Calcium 40 MG TAKE 1 TABLET BY MOUTH ONCE DAILY Treatment Notes Assessment Notes Synovial cyst no treatment needed Pure hypercholesterolemia labs reviewed, will continue current regiment Prediabetes continue with weight loss, no meds needed at this time Essential hypertension stable, will cont inue current regiment Next Appt Details Provider Name:Levy correa, 01/16/2025 10:15:00 AM, [address] [place] [address], [address], [phone], Provider Name:Levy corera, 07/16/2025 07:15:00 AM, [address] [place] [address], [address], [phone], Provider Name:Levy correa, 07/23/2025 08:30:00 AM, [address] [place] [address], [address], [phone], Progress Notes * Alexei NICEDOB:1960 (63 yo M)Acc No.[id number]:01/17/2024 Progress Notes Patient: Alexei Felton Provider: Anay Meier MD :1960 A ge:63 Y S ex:Male Date:01/17/2024 Address:[facility] [place] [id number] Subjective: * Chief Complaints: * 6 MO F/U * HPI: S ymptom(s): patient is a 63 yo male here for 6 month follow.up visit, walking 3 miles daily in the house. * ROS: G eneral/Constitutional: Denies C hills. D enies F atigue. D enies F ever. D enies H eadache. E NT: Patient denies d ecreased sense of smell , any loss of taste , sore throat. D enies S ore throat. E ndocrine: Denies D ifficulty sleeping. D enies D izziness.?Denies E xcessive sweating. D enies E xcessive thirst. D enies F requent urination. R espiratory: Denies C ough. D enies S hortness of breath at rest. D enies S hortness of breath with exertion. G astrointestinal: Denies D iarrhea. D enies N ausea. M usculoskeletal: Patient denies m uscle aches. P eripheral Vascular: Patient denies r ed and blue toes. * Medical History: * Surgical History: * Hospitalization/Major Diagno stic Procedure: * Medications: T akingAspir-Low 81 MG Tablet Delayed Release 1 tablet Orally Once a dayLisinopril-hydroCHLOROthiazide 10-12.5 MG Tablet TAKE 1 TABLET BY MOUTH ONCE DAILY Atorvastatin Calcium 40 MG Tablet TAKE 1 TABLET BY MOUTH ONCE DAILY Taking Aspir-Low 81 MG Tablet Delayed Release 1 tablet Orally Once a dayTaking Lisinopril-hydroCHLOROthiazide 10-12.5 MG Tablet TAKE 1 TABLET BY MOUTH ONCE DAILY Taking Atorvastatin Calcium 40 MG Tablet TAKE 1 TABLET BY MOUTH ONCE DAILY Not-Taking/PRNGabapentin 100 MG Capsule 1 capsule Orally Three times a dayoxyCODONE HCl 5 MG Tablet 1 tablet as needed Orally every 6 hrsIbuprofen 800 MG Tablet 1 tablet Orally Three times a dayMedication List reviewed and reconciled with the patientNot-Taking/PRN Gabapentin 100 MG Capsule 1 capsule Orally Three times a dayNot-Taking/PRN oxyCODONE HCl 5 MG Tablet 1 tablet as needed Orally every 6 hrsNot-Taking/PRN Ibuprofen 800 MG Tablet 1 tablet Orally Three times a dayMedication List reviewed and reconciled with the patient * Allergies: N .K.D.A.yes[Allergies Verified] Objective: * Vitals: H t: 67, Wt:228, BMI:35.71, BP:108/64 weight is down 3 pounds since 07-12-23. * P ast Orders: L ab:Lipid Panel with Reflex (Order Date - 01/11/2024) (Collection Date - 01/11/2024) Value Reference Range Triglycerides 114 <150 - mg/dL Cholesterol 150 <200 - mg/dL LDL Cholesterol Calculated 89 <100 - mg/dL HDL Cholesterol 39 L >40 - mg/dL L ab:Hemoglobin A1c (Order Date - 01/11/2024) (Collection Date - 01/11/2024) Value Reference Range Hemoglobin A1c % 5.9 <6.0 - % Estimated Average Glucose 123 - mg/dL L ab:Liver Panel (Order Date - 01/11/2024) (Collection Date - 01/11/2024) Value Reference Range Bilirubin Total 0.7 0.0-1.0 - mg/dL Bilirubin Direct 0.2 0.0-0.5 - mg/dL Aspartate Amino Transferase 43 H 5-37 - U/L Alanine Aminotransferase 65 H 0-40 - U/L Total Protein 7.0 6.5-8.0 - g/dL Albumin Level 4.1 3.5-5.0 - g/dL Alkaline Phosphatase 108 39-117 - U/L L ab:Glucose Fasting (Order Date - 01/11/2024) (Collection Date - 01/11/2024) Value Reference Range Glucose Fasting 107 H 60-99 - mg/dL * Examination: G eneral Examination: GENERAL APPEARANCE: n ormal. HEAD: n ormocephalic. HEART: r egular rate and rhythm , no murmurs, rubs, gallops. LUNGS: n o wheezes, rales, rhonchi , good air movement , clear to auscultation bilaterally. ABDOMEN: s oft, nontender, nondistended , no rebound tenderness. EXTREMITIES: a bnormal rt index finger with a synovial cyst. Assessment: * Assessment: 1. P ure hypercholesterolemia - E78.00 (Primary) 2 . S ynovial cyst - M71.30 3 .?Prediabetes - R73.09 4 . E ssential hypertension - I10 Plan: * Treatment: 2. S ynovial cyst Notes: no treatment needed 3. P rediabetes Notes: continue with weight loss, no meds needed at this time 4. E ssential hypertension Continue Lisinopril-hydroCHLOROthiazide Tablet, 10-12.5 MG, TAKE 1 TABLET BY MOUTH ONCE DAILY. Notes: stable, will continue current regiment * Procedure Codes: * * Sign off status: Completed true * Provider: Anay Meier MD Date: 03/18/2023 Generated for Geneva corado/Veronica/Thienitting on: 03/14/2024 12:26 PM EST History and Physical Notes * HPI (History of Present Illness) Category Sub-Category Detail Notes Category Not es Symptom(s) patient is a 63 yo male here for 6 month follow.up visit, walking 3 miles daily in the house Examination Category Sub-Category Detail Notes Category Not es General Examination GENERAL APPEARANCE: normal HEAD: normocephalic HEART: regular rate and rhy thm , no murmurs, rubs, gallops LUNGS: no wheezes, rales, r honchi , good air movement , clear to auscultation bilaterally ABDOMEN: soft, nontender, non distended , no rebound tenderness EXTREMITIES: abnormal rt index fi nger with a synovial cyst
--- OUTSIDE RECORDS SUMMARY | 2024-05-05 08:08 | XMS_ITS ---
Author Organization Levy Meier MD Address [address] [place] [phone] Care Team Providers Care Single Stayer Operator Name Role Phone Levy Meier Primary Care Provider REASON FOR VISIT refill Medications Medication SIG (Take, Route, Frequency, Duration) Notes Start Date End Date Status Lisinopril-hydroCHLOROthia zide 10-12.5 MG TAKE 1 TABLET BY MOUTH ONCE DAILY Orally Once a day for 90 days Active Encounters Encounter Location Date Provider Diagnosis Levy Meier MD [address] [facility] [address] [place] [phone] 05/05/2024 Levy Meier Essential hypertension I10 Assessments Encounter Date Diagnosis (ICD Code) Assessment Notes Treatment Notes Treatment Clinical Notes Section Notes 05/05/2024 Essential hypertension (ICD-10 - I10) Plan Of Treatment Medication Medication Name Sig Start Date Stop Date Notes Lisinopril-hydroCHLOROthiazi de 10-12.5 MG TAKE 1 TABLET BY MOUTH ONCE DAILY Orally Once a day for 90 days Next Appt Details Provider Name:Levy correa, 01/16/2025 10:15:00 AM, [address] [place] [address], [address], [phone], Provider Name:Levy correa, 07/16/2025 07:15:00 AM, [address] [place] [address], [address], [phone], Provider Name:Levy Trotter sunny, 07/23/2025 08:30:00 AM, [address], [address], [place], [phone], Progress Notes * Alexei NICEDOB:1960 (63 yo M)Acc No.[id number]:05/05/2024 Patient: Alexei LOPES :1960 A ge:63 Y S ex:Male Address:[facility] [place] , [place] [address] * Refills Refill Lisinopril-hydroCHLOROthiazide Tablet, 10-12.5 MG, Orally, 90, TAKE 1 TABLET BY MOUTH ONCE DAILY, Once a day, 90 days, Refills=3 * true * Date: Generated for Geneva corado/Veronica/Thienitting on: 03/14/2024 12:26 PM EST
--- OUTSIDE RECORDS SUMMARY | 2024-05-30 05:08 | XMS_ITS ---
Author Organization Levy Meier MD Address [address] [facility] [place] [phone] Care Team Providers Care Analytical Consultant Name Role Phone Levy Meier Primary Care Provider [phone] REASON FOR VISIT RF Atorvastatin Medications Medication SIG (Take, Route, Frequency, Duration) Notes Start Date End Date Status Atorvastatin Calcium 40 MG TAKE 1 TABLET BY MOUTH ONCE DAILY Orally Once a day for 90 days Active Encounters Encounter Location Date Provider Diagnosis Levy Meier MD [address] [facility] [address] [place] [phone] 05/30/2024 Levy Meier Pure hypercholestero lemia E78.00 Assessments Encounter Date Diagnosis (ICD Code) Assessment Notes Treatment Notes Treatment Clinical Notes Section Notes 05/30/2024 Pure hypercholesterolemia (ICD-10 - E78.00) Plan Of Treatment Medication Medication Name Sig Start Date Stop Date Notes Atorvastatin Calcium 40 MG TAKE 1 TABLET BY MOUTH ONCE DAILY Orally Once a day for 90 days Next Appt Details Provider Name:Levy correa, 01/16/2025 10:15:00 AM, [address] [place] [address], [address], [phone], Provider Name:Levy correa, 07/16/2025 07:15:00 AM, [address] [place] [address], [address], [phone], Provider Name:Levy Phelps Ashleygypsy sunny, 07/23/2025 08:30:00 AM, [address] [facility], [address], [place], [place], [phone], Progress Notes * Alexei NICEDOB:1960 (63 yo M)Acc No.[id number]:05/30/2024 Patient: Alexei LOPES :1960 A ge:63 Y S ex:Male Address:[place] [address] * Refills Refill Atorvastatin Calcium Tablet, 40 MG, Orally, 90, TAKE 1 TABLET BY MOUTH ONCE DAILY, Once a day, 90 days, Refills=3 * true * Date: Generated for Geneva corado/Veronica/Thienitting on: 03/14/2024 12:25 PM EST
--- OUTSIDE RECORDS SUMMARY | 2024-07-10 02:15 | XMS_ITS ---
Author Organization Levy Meier MD Address [address] [place], [place] [id number] Care Team Providers Care Sql Analyst Name Role Phone Levy Meier Primary Care Provider Results Component Value Reference Range Notes Complete Blood Count Auto Di ff Reviewed date:07/10/2024 05:07:35 PM Interpretation: Performing Lab:[facility], [address] [place] [phone] Notes/Report: White Blood Count 8.3 4.8-10.8 X10*3/uL Red Blood Count 5.14 4.60-5.80 X10*6/uL Hemoglobin 15.2 14.0-18.0 g/dl Hematocrit 45.5 42.0-52.0 % Mean Corpuscular Volume 88.5 80.0-98.0 fL Mean Corpuscular Hemoglobin 29.6 27.0-33.0 pg Mean Corpuscular HGB Conc 33.4 31.0-36.0 g/dl Red Cell Distribution Width 12.7 11.0-16.0 % Platelet Count 264 160-400 X10*3/uL Mean Platelet Volume 9.8 9.4-12.4 fL Neutrophils Percent Auto 47.0 45-73 % Imm Gran Pct Auto 0.2 0.0-0.4 % Lymphocytes Percent Auto 37.7 20-40 % Monocytes Percent Auto 8.5 2-11 % Eosinophils Percent Auto 6.5 0-4 % Basophils Percent Auto 0.1 0-2 % NRBC Pct Auto 0.0 0.0-0.2 /100WBC Neutrophils Absolute Auto 3.9 2.0-8.3 x10*3/u L Imm Gran Abs Auto 0.02 0.00-0.03 X10*3/uL Lymphocytes Absolute Auto 3.1 1.2-4.9 X10*3/u L Monocytes Absolute Auto 0.7 0.1-1.2 X10*3/uL Eosinophils Absolute Auto 0.5 0.0-0.4 X10*3/u L Basophils Absolute Auto 0.0 0.0-0.2 X10*3/uL NRBC Abs Auto 0.000 0.0-0.012 X10*3/uL Comprehensive [place]. Panel Fa Reviewed date:07/10/2024 04:55:45 PM Interpretation: Performing Lab:[address] [phone] Notes/Report: Sodium 138 135-145 mmol/L Potassium 4.3 3.3-5.1 mmol/L Chloride 105 96-108 mmol/L Carbon Dioxide 24 22-29 mmol/L Anion Gap 13 12-20 Blood Urea Nitrogen 15 9-16 mg/dL Creatinine 0.96 0.5-1.4 mg/dL Estimated Glomerular Filt Rate > 60 Chronic Kidney Disease: Estimated GFR < 60 mL/min/1.73m2 Severe Kidney Disease: Estimated GFR < 15 mL/min/1.73m2 Glucose Fasting 110 60-99 mg/dL A fasting glucose from 100-125 mg/dl is considered impaired (pre-diabetes). Calcium 9.0 8.4-10.2 mg/dL Bilirubin Total 0.8 0.0-1.0 mg/dL Aspartate Amino Transferase 70 5-37 U/L Alanine Aminotransferase 141 0-40 U/L Total Protein 6.7 6.5-8.0 g/dL Albumin Level 4.0 3.5-5.0 g/dL Alkaline Phosphatase 109 39-117 U/L Lipid Panel Reviewed date:07/10/2024 04:57:10 PM Interpretation: Performing Lab:[address] [phone] Notes/Report: Triglycerides 123 <150 mg/dL Desirable Triglyceride: less than 150 mg/dL Borderline High Triglyceride 150-199 mg/dL High Triglyceride: 200-499 mg/dL Very High Triglyceride: greater than or equal to 5OO mg/dL Cholesterol 138 <200 mg/dL Desirable Cholesterol: less than 200 mg/dL Borderline High Cholesterol: 200-239 mg/dL High Cholesterol: greater than 239 mg/dL LDL Cholesterol Calculated 78 <100 mg/dL Desirable LDL: less than 100 mg/dL Near Optimal/Above Optimal LDL: 110-129 mg/dL Borderline High LDL: 130-159 mg/dL High LDL: 160-189 mg/dL Very High LDL: greater than or equal to 190 mg/dL HDL Cholesterol 36 >40 mg/dL Desirable HDL: greater than 40 mg/dL Note: This HDL assay may give artificially low results in patients with liver disease. PSA,Total (Free>4and<10) Reviewed date:10/24/2024 12:51:45 PM Interpretation:10-17-2024 Performing Lab:[address] [phone] Notes/Report: PSA,Total (Free>4and<10) 3.85 0.00-4.00 ng/mL A Free PSA was not performed: The percentage of Free PSA can be used to enhance the differentiation of prostate cancer from benign prostatic disease in subjects whose PSA levels are between 4.0 and 10.0 ng/mL. For subjects whose PSA levels are below 4.0 or above 10.0 ng/mL, the risk of prostate cancer is determined on the basis of the PSA alone. Therefore the % Free PSA is recommended only for those subjects whose PSA levels are between 4.0 and 10.0 ng/mL. PSA methodology: Lombardi Alinity i Chemiluminescent Microparticle Immunoassay (CMIA) Microalbumin, Random Reviewed date:07/10/2024 04:56:48 PM Interpretation: Performing Lab:[facility], [address] [place] [phone] Notes/Report: Creatinine Urine 106.62 Microalbumin Urine 17.0 Microalbum/Creatinine Ratio Ur 15.9 <30 ug/mg cr Albumin/Creatinine Ratio Reference Ranges: Normal: < 30 ug/mg creatinine Microalbuminuria: 30 - 300 ug/mg creatinine Clinical Albuminuria: > 300 ug/mg creatinine Hemoglobin A1c Reviewed date:07/10/2024 04:54:25 PM Interpretation: Performing Lab:[facility], [address] [place] [phone] Notes/Report: Hemoglobin A1c % 6.2 <6.0 % Hemoglobin A1C Reference Range Adults: 4.8 - 6.0 % Non diabetic: < 6.0 % Goal: < 7.0 % Additional Action Suggested: > 8.0 % Note: Hemoglobin A1c results are invalid for patients with abnormal amounts of HbF. Blood transfusions may impact the HbA1c concentration in the patient sample. Estimated Average Glucose 131 eAG = Estimated average glucose which is %A1C expressed as average glucose, using the formula of the C1I-Eypmofo Average Glucose study (ADAG), Diabetes Care, Vol.31,#8, Oct. 2007 UA ClnCatch+Micro w/rflx Cul t Reviewed date:07/10/2024 05:07:53 PM Interpretation: Performing Lab:[facility], [address] [place] [phone] Notes/Report: Urine, Clean Catch Color Urine Yellow Appearance Urine Clear PH 5.5 5.0-9.0 Glucose Urine UA Negative Negative mg/dL Urine Blood Negative Negative Specific [place] - Urine 1.015 1.005-1.025 Urine Protein Negative Neg-Trace mg/dL Urine Ketones Negative Negative mg/dL Nitrite Urine Negative Negative Leukocyte Esterase Urine Negative Negative RBC Urine 0-2 0-2 /HPF WBC Urine 0-5 0-5 /HPF Squamous Epithelial Cell Urine 0-2 0-2 /HPF Bacteria Urine None Seen None Seen Hyaline Casts Urine 0-2 0-2 /LPF REASON FOR VISIT FASTING LABS Encounters Encounter Location Date Provider Diagnosis Levy Meier MD [address] [place] [address] Drive [address] [place], [place] [phone] 07/10/2024 Levy Mieer Blood tests for rout ine general physical examination Z00.00 ; Essential hypertension I10 ; Prediabetes R73.09 and Pure hypercholesterolemia E78.00 Assessments Encounter Date Diagnosis (ICD Code) Assessment Notes Treatment Notes Treatment Clinical Notes Section Notes 07/10/2024 [address] tests for rout ine general physical examination (ICD-10 - Z00.00) 07/10/2024 Essential hypertensi on (ICD-10 - I10) 07/10/2024 Prediabetes (ICD-10 - R73.09) 07/10/2024 Pure hypercholesterolemia (ICD-10 - E78.00) Plan Of Treatment Next Appt Details Provider Name:Levy Trotter ier, 01/16/2025 10:15:00 AM, [address] [place] [address], [address], [place], [place], [phone], Provider Name:Levy Trotter ier, 07/16/2025 07:15:00 AM, [address] [place] [address], [address], [place], [place], [phone], Provider Name:Levy Trotter ier, 07/23/2025 08:30:00 AM, [address] [place] [address], Suite [facility], [place], [place], [phone], Progress Notes * Bakari NICEpriscilaDOB:1960 (64 yo M)Acc No.[id number]:07/10/2024 Progress Note Patient: Alexei LOPES Provider: Anay Meier MD :1960 A ge:63 Y S ex:Male Date:07/10/2024 Address:[facility] [place] [address] Subjective: * Chief Complaints: * 1 . FASTING LABS. * Medical History: Objective: * Vitals: Assessment: * Assessment: 1. B lood tests for routine general physical examination - Z00.00 (Primary) 2 .?Essential hypertension - I10 3 . P rediabetes - R73.09 4 .?Pure hypercholesterolemia - E78.00 Plan: * Treatment: 2. E ssential hypertension L AB: Complete Blood Count Auto Diff (Collection Date & Time - 07/10/2024 07:15 AM) L AB: Comprehensive [place]. Panel Fast (Collection Date & Time - 07/10/2024 07:15 AM) L AB: Lipid Panel (Collection Date & Time - 07/10/2024 07:15 AM) L AB: PSA,Total (Free>4and<10) (Collection Date & Time - 07/10/2024 07:15 AM) L AB: Microalbumin, Random (Collection Date & Time - 07/10/2024 07:15 AM) L AB: Hemoglobin A1c (Collection Date & Time - 07/10/2024 07:15 AM) L AB: UA ClnCatch+Micro w/rflx Cult (Collection Date & Time - 07/10/2024 07:15 AM) 3. P rediabetes L AB: Complete Blood Count Auto Diff (Collection Date & Time - 07/10/2024 07:15 AM) L AB: Comprehensive [place]. Panel Fast (Collection Date & Time - 07/10/2024 07:15 AM) L AB: Lipid Panel (Collection Date & Time - 07/10/2024 07:15 AM) L AB: PSA,Total (Free>4and<10) (Collection Date & Time - 07/10/2024 07:15 AM) L AB: Microalbumin, Random (Collection Date & Time - 07/10/2024 07:15 AM) L AB: Hemoglobin A1c (Collection Date & Time - 07/10/2024 07:15 AM) L AB: UA ClnCatch+Micro w/rflx Cult (Collection Date & Time - 07/10/2024 07:15 AM) 4. P ure hypercholesterolemia L AB: Complete Blood Count Auto Diff (Collection Date & Time - 07/10/2024 07:15 AM) L AB: Comprehensive [place]. Panel Fast (Collection Date & Time - 07/10/2024 07:15 AM) L AB: Lipid Panel (Collection Date & Time - 07/10/2024 07:15 AM) L AB: PSA,Total (Free>4and<10) (Collection Date & Time - 07/10/2024 07:15 AM) L AB: Microalbumin, Random (Collection Date & Time - 07/10/2024 07:15 AM) L AB: Hemoglobin A1c (Collection Date & Time - 07/10/2024 07:15 AM) L AB: UA ClnCatch+Micro w/rflx Cult (Collection Date & Time - 07/10/2024 07:15 AM) * Procedure Codes: 3 6415 VENIPUNCT, ROUTINE* * * The named appointment provid er may or may not be the originator of this progress note, and it is not deemed complete until electronically signed by the appointment provider. Sign off status: Pending * Provider: Anay Meier MD Date: 0 07/10/2024 Generated for Geneva corado/Veronica/Sammie on: 1 03/14/2024 12:25 PM EST
--- OUTSIDE RECORDS SUMMARY | 2024-07-17 03:30 | XMS_ITS ---
Author Organization Levy Meier MD Address [address] [place], [place] [id number] Care Team Providers Care Tattooer Name Role Phone Levy Meier Primary Care Provider Allergies No Known Allergies Results Component Value Reference Range Notes Occult Blood, Stool, Guaiac Reviewed date:07/17/2024 10:53:42 AM Interpretation:Negative Performing Lab: Notes/Report: Negative Occult Blood, Stool, Guaiac Neg REASON FOR VISIT ANNUAL EXAM Medications Medication SIG (Take, Route, Frequency, Duration) Notes Start Date End Date Status Aspir-Low 81 MG 1 tablet Orally Once a day for 30 day(s) Active Lisinopril-hydroCHLOROthi azide 10-12.5 MG TAKE 1 TABLET BY MOUTH ONCE DAILY Orally Once a day Active oxyCODONE HCl 5 MG 1 tablet as needed Orally every 6 hrs Not-Taking Gabapentin 100 MG 1 capsule Orally Thr ee times a day for 30 day(s) Not-Taking Ibuprofen 800 MG 1 tablet Orally Thre e times a day for 14 days 03/30/2016 Not-Taki ng Atorvastatin Calcium 20 MG TAKE 1 TABLET BY MOUTH ONCE DAILY Orally Once a day Active Social History Tobacco Use: Social History Observation Description Date Details (start date - stop date) Current Smoker NA - NA Tobacco Use/Smoking Question Answer Notes Patient is a current smoker How often do you smoke cigarettes? every day How many cigarettes a day do you smoke? 6-10 How soon after you wake up d o you smoke your first cigarette? within 5 minutes Are you interested in quitting? Not ready to kit t Additional Findings: Tobacco User Rabia guillen cigarette smoker, not currently using another form of tobacco Alcohol Screen Question Answer Notes Did you have a drink containing alcohol in the p ast year? No Points 0 Interpretation Negative Vital Signs Blood pressure systolic 118 mm Hg 07/18/19 25 Blood pressure diastolic 76 mm Hg 025 Height 67 in 07/17/2024 Weight 230 lbs 07/17/2024 BMI 36.02 kg/m2 07/17/2024 weight is up 2 pounds since 01-17-24 Encounters Encounter Location Date Provider Diagnosis Levy Meier MD [address] [place] [address] [address] [place], [place] [id number] 07/17/2024 Levy Meier Elevated PSA R97.20 ; Adult general medical examination Z00.00 ; Elevated LFTs R79.89 ; Essential hypertension I10 ; Prediabetes R73.09 ; Smoker F17.200 ; Colon cancer screening Z12.11 and Depression screening Z13.31 Assessments Encounter Date Diagnosis (ICD Code) Assessment Notes Treatment Notes Treatment Clinical Notes Section Notes 07/17/2024 Elevated PSA (ICD-10 - R97.20) will continue to monitor, future lab pending 07/17/2024 Adult general medical examination (ICD-10 - Z00.00) labs reviewed and discussed with patient 07/17/2024 Elevated LFTs (ICD-10 - R79.89) decrease atorvastin to 20 mg, patient verbalized instructions to decrease medication, will comnitor with future labs 07/17/2024 Essential hypertension (ICD-10 - I10) stable, will continue current regiment 07/17/2024 Prediabetes (ICD-10 - R73.09) stable, no need for medication at this time 07/17/2024 Smoker (ICD-10 - F17.200) 07/17/2024 Colon cancer screening (ICD-10 - Z12.11) guaic negative 07/17/2024 Depression screening (ICD-10 - Z13.31) negative screen Plan Of Treatment Medication Medication Name Sig Start Date Stop Date Notes Lisinopril-hydroCHLOROthiazi de 10-12.5 MG TAKE 1 TABLET BY MOUTH ONCE DAILY Orally Once a day Atorvastatin Calcium 20 MG TAKE 1 TABLET BY MOUTH ONCE DAILY Orally Once a day Treatment Notes Assessment Notes Elevated PSA will continue to mon itor, future lab pending Adult general medical examination labs r kariswed and discussed with patient Elevated LFTs decrease atorvastin to 20 mg, patient verbalized instructions to decrease medication, will comnitor with future labs Essential hypertension stable, will cont inue current regiment Prediabetes stable, no need for medication at this time Colon cancer screening guaic negative Depression screening negative screen Next Appt Details Provider Name:Levy Trotter ier, 01/16/2025 10:15:00 AM, [address] [place] [address], [place] [address], [place], [place], [phone], Provider Name:Levy Trotter ier, 07/16/2025 07:15:00 AM, [address] [place] [address], [place] [address], [place], [place], [phone], Provider Name:Levy Trotter ier, 07/23/2025 08:30:00 AM, [address] [place] [address], [place] [address], [place], [place], [phone], Progress Notes * Alexei NICEDOB:1960 (63 yo M)Acc No.[id number]:07/17/2024 Progress Notes Patient: Alexei LOPES Provider: Anay Meier MD :1960 A ge:63 Y S ex:Male Date:07/17/2024 Address:[facility] [place] [id number] Subjective: * Chief Complaints: * A NNUAL EXAM * HPI: D epression Screening: PHQ-9 L ittle interest or pleasure in doing things N ot at all, F eeling down, depressed, or hopeless N ot at all, T rouble falling or staying asleep, or sleeping too much N ot at all, F eeling tired or having little energy N ot at all, P oor appetite or overeating N ot at all, F eeling bad about yourself or that you are a failure, or have let yourself or your family down N ot at all, T rouble concentrating on things, such as reading the newspaper or watching television N ot at all, M oving or speaking so slowly that other people could have noticed; or the opposite, being so fidgety or restless that you have been moving around a lot more than usual N ot at all, T houghts that you would be better off or of hurting yourself in some way N ot at all, T otal Score 0 . I nterpretation and Intervention D epression Screening Findings N egative, F ollow-Up for Depression : review of PHQ-9 found negative result, no follow-up needed. C ommunication Needs: Communication Needs D oes the patient have a hearing impairment N o, D oes the patient have a vision impairment? Y es, I f yes, what is the vision impairment? G lasses, D oes the patient have a cognition impairment? N o. F all Risk: History H ave you had any falls with injury in the past year? N o, H ave you had two or more falls in the past year? N o. S ELLA Questions: SDOH Questions I n the past year have you been worried about losing housing? N o, I n the past year have you or any family members you live with been unable to get any of the following when it was really needed? Check all that apply: N one. S ymptom(s): patient is a 63 yo male here for annual visit with review of recent labs and follow up of chronic issues. * ROS: G eneral/Constitutional: Change in appetite d enies. C hills d enies. F ever d enies. O phthalmologic: Blurred vision d enies. D ischarge d enies. P ain d enies. E NT: Decreased hearing d enies. S ore throat d enies.?Swollen glands d enies. E ndocrine: Cold intolerance d enies. E xcessive thirst d enies. H eat intolerance d enies. W eight loss d enies. R espiratory: Cough d enies. S hortness of breath at rest d enies. S hortness of breath with exertion d enies. W heezing d enies. C ardiovascular: Chest pain at rest d enies. C hest pain with exertion?denies. I rregular heartbeat d enies. S hortness of breath d enies. ? G astrointestinal: Abdominal pain d enies. C hange in bowel habits d enies. D iarrhea d enies. N ausea d enies. R ectal bleeding d enies. V omiting d enies . G enitourinary: Blood in urine d enies. D ifficulty urinating d enies. F requent urination d enies. M usculoskeletal: Painful joints d enies. W eakness d enies. ? S kin: Dry skin d enies. I tching d enies. D enies?Mole(s), changes in moles, new moles or any lesions of concern. D enies P hotosensitivity. R shannon d enies. N eurologic: Dizziness d enies. F ainting d enies. H eadache?denies. * Medical History: * Surgical History: * Hospitalization/Major Diagno stic Procedure: * Family History: F ather: 85 yrs, sepsis, kidney failure. M other: alive 89 yrs, Healthy. 2 sister(s) . . No pertinent family medical history, Denies mental health/substance abuse family history, Denies mental health/substance abuse family history. * Social History: T obacco Use: T obacco Use/Smoking P atient is a c urrent smoker, H ow often do you smoke cigarettes? e very day, H ow many cigarettes a day do you smoke? 6 -10, H ow soon after you wake up do you smoke your first cigarette? w ithin 5 minutes, A re you interested in quitting? N ot ready to quit, A dditional Findings: Tobacco User C urrent cigarette smoker, not currently using another form of tobacco. D rugs/Alcohol: A lcohol Screen D id you have a drink containing alcohol in the past year? N o, P oints 0 , I nterpretation N egative. M iscellaneous: C affeine: no. Children: no. Exercise: yes, walks 3 miles QD. Home smoke detector use: yes. Housing: owning. Living with: family. Occupation: unemployment. Pets: none. Travel outside of the [place]: no. * Medications: T akingAspir-Low 81 MG Tablet Delayed Release 1 tablet Orally Once a day Lisinopril-hydroCHLOROthiazide 10-12.5 MG Tablet TAKE 1 TABLET BY MOUTH ONCE DAILY Orally Once a day Atorvastatin Calcium 40 MG Tablet TAKE 1 TABLET BY MOUTH ONCE DAILY Orally Once a day Taking Aspir-Low 81 MG Tablet Delayed Release 1 tablet Orally Once a day Taking Lisinopril-hydroCHLOROthiazide 10-12.5 MG Tablet TAKE 1 TABLET BY MOUTH ONCE DAILY Orally Once a day Taking Atorvastatin Calcium 40 MG Tablet TAKE 1 TABLET BY MOUTH ONCE DAILY Orally Once a day Not-Taking/PRNGabapentin 100 MG Capsule 1 capsule Orally Three times a day oxyCODONE HCl 5 MG Tablet 1 tablet as needed Orally every 6 hrs Ibuprofen 800 MG Tablet 1 tablet Orally Three times a day Medication List reviewed and reconciled with the patientNot-Taking/PRN Gabapentin 100 MG Capsule 1 capsule Orally Three times a day Not-Taking/PRN oxyCODONE HCl 5 MG Tablet 1 tablet as needed Orally every 6 hrs Not-Taking/PRN Ibuprofen 800 MG Tablet 1 tablet Orally Three times a day Medication List reviewed and reconciled with the patient * Allergies: N .K.D.A.yes[Allergies Verified] Objective: * Vitals: H t: 67, Wt: 230, BMI:36.02, BP:118/76, Wt-k.33. weight is up 2 pounds since 01-17-24. * P ast Orders: L ab:Microalbumin, Random (Order Date - 07/10/2024) (Collection Date & Time - 07/10/2024 07:15 AM) Value Reference Range Creatinine Urine 106.62 - mg/dL Microalbumin Urine 17.0 - mg/L Microalbum Creatinine Ratio Ur 15.9 <30 - ug/ mg cr L ab:Hemoglobin A1c (Order Date - 07/10/2024) (Collection Date & Time - 07/10/2024 07:15 AM) Value Reference Range Hemoglobin A1c % 6.2 H <6.0 - % Estimated Average Glucose 131 - mg/dL L ab:UA ClnCatch+Micro w/rflx Cult (Order Date - 07/10/2024) (Collection Date & Time - 07/10/2024 07:15 AM) Value Reference Range Color Urine Yellow - Appearance Urine Clear - PH 5.5 5.0-9.0 - Glucose Urine UA Negative Negative - mg/dL Urine Blood Negative Negative - Specific [place] - Urine 1.015 1.005-1.025 - Urine Protein Negative Neg-Trace - mg/dL Urine Ketones Negative Negative - mg/dL Nitrite Urine Negative Negative - Leukocyte Esterase Urine Negative Negative - RBC Urine 0-2 0-2 - /HPF WBC Urine 0-5 0-5 - /HPF Squamous Epithelial Cell Urine 0-2 0-2 - /HP F Bacteria Urine None Seen None Seen - Hyaline Casts Urine 0-2 0-2 - /LPF L ab:Complete Blood Count Auto Diff (Order Date - 07/10/2024) (Collection Date & Time - 07/10/2024 07:15 AM) Value Reference Range White Blood Count 8.3 4.8-10.8 - X10*3/uL Red Blood Count 5.14 4.60-5.80 - X10*6/uL Hemoglobin 15.2 14.0-18.0 - g/dl Hematocrit 45.5 42.0-52.0 - % Mean Corpuscular Volume 88.5 80.0-98.0 - fL Mean Corpuscular Hemoglobin 29.6 27.0-33.0 - pg Mean Corpuscular HGB Conc 33.4 31.0-36.0 - g/ dl Red Cell Distribution Width 12.7 11.0-16.0 - % Platelet Count 264 160-400 - X10*3/uL Mean Platelet Volume 9.8 9.4-12.4 - fL Neutrophils Percent Auto 47.0 45-73 - % Imm Gran Pct Auto 0.2 0.0-0.4 - % Lymphocytes Percent Auto 37.7 20-40 - % Monocytes Percent Auto 8.5 2-11 - % Eosinophils Percent Auto 6.5 H 0-4 - % Basophils Percent Auto 0.1 0-2 - % NRBC Pct Auto 0.0 0.0-0.2 - /100WBC Neutrophils Absolute Auto 3.9 2.0-8.3 - x10* 3/uL Imm Gran Abs Auto 0.02 0.00-0.03 - X10*3/uL Lymphocytes Absolute Auto 3.1 1.2-4.9 - X10* 3/uL Monocytes Absolute Auto 0.7 0.1-1.2 - X10*3/ uL Eosinophils Absolute Auto 0.5 H 0.0-0.4 - X10* 3/uL Basophils Absolute Auto 0.0 0.0-0.2 - X10*3/ uL NRBC Abs Auto 0.000 0.0-0.012 - X10*3/uL L ab:Comprehensive Drake. Panel Fast (Order Date - 07/10/2024) (Collection Date & Time - 07/10/2024 07:15 AM) Value Reference Range Sodium 138 135-145 - mmol/L Bilirubin Total 0.8 0.0-1.0 - mg/dL Aspartate Amino Transferase 70 H 5-37 - U/L Alanine Aminotransferase 141 H 0-40 - U/L Total Protein 6.7 6.5-8.0 - g/dL Albumin Level 4.0 3.5-5.0 - g/dL Alkaline Phosphatase 109 39-117 - U/L Potassium 4.3 3.3-5.1 - mmol/L Chloride 105 96-108 - mmol/L Carbon Dioxide 24 22-29 - mmol/L Anion Gap 13 12-20 - Blood Urea Nitrogen 15 9-16 - mg/dL Creatinine 0.96 0.5-1.4 - mg/dL Estimated Glomerular Filt Rate > 60 - Glucose Fasting 110 H 60-99 - mg/dL Calcium 9.0 8.4-10.2 - mg/dL L ab:Lipid Panel (Order Date - 07/10/2024) (Collection Date & Time - 07/10/2024 07:15 AM) Value Reference Range Triglycerides 123 <150 - mg/dL Cholesterol 138 <200 - mg/dL LDL Cholesterol Calculated 78 <100 - mg/dL HDL Cholesterol 36 L >40 - mg/dL * Examination: G eneral Examination: GENERAL APPEARANCE: w ell developed, well nourished, in no acute distress. HEAD: n ormocephalic, atraumatic. EYES: p upils equal, round, reactive to light and accommodation, sclera non-icteric. EARS: n ormal. ORAL CAVITY: m ucosa moist. THROAT: c lear. NECK/THYROID: n raina supple, full range of motion, no cervical lymphadenopathy, no bruits. SKIN: w arm and dry, no suspicious lesions. HEART: r egular rate and rhythm, S1, S2 normal, no murmurs.? LUNGS: c lear to auscultation bilaterally. ABDOMEN: s oft, nontender, nondistended, bowel sounds present, normal, no organomegaly , no masses palpable. RECTAL EXAM: n ormal tone, no external hemorrhoids, no masses palpable, prostate normal, stool guaiac negative. MALE GENITOURINARY: u ncircumcised, prostate normal, no testicular mass. EXTREMITIES: n o clubbing, cyanosis, or edema. NEUROLOGIC: n onfocal, motor strength normal upper and lower extremities, sensory exam intact. Assessment: * Assessment: 1. A dult general medical examination - Z00.00 (Primary) 2 . E levated PSA - R97.20 3 . E levated LFTs - R79.89 4 . E ssential hypertension - I10 5 . P rediabetes - R73.09 6 . S moker - F17.200 7. C olon cancer screening - Z12.11 8 . D epression screening - Z13.31 Plan: * Treatment: 2. E levated PSA L AB: PSA,Total (Free>4and<10) (Ordered for 10/17/2024) Notes: will continue to monitor, future lab pending 3. E levated LFTs Continue Atorvastatin Calcium Tablet, 20 MG, TAKE 1 TABLET BY MOUTH ONCE DAILY, Orally, Once a day.? L AB: Liver Panel (Ordered for 10/17/2024) L AB: Lipid Panel (Ordered for 10/17/2024) Notes: decrease atorvastin to 20 mg, patient verbalized instructions to decrease medication, will comnitor with future labs 4. E ssential hypertension Continue Lisinopril-hydroCHLOROthiazide Tablet, 10-12.5 MG, TAKE 1 TABLET BY MOUTH ONCE DAILY, Orally, Once a day. Notes: stable, will continue current regiment 5. P rediabetes Notes: stable, no need for medication at this time 6. C olon cancer screening L AB: Occult Blood, Stool, Guaiac (Collection Date & Time - 07/17/2024) N egative Value Reference Range O ccult Blood, Stool, Guaiac Neg Notes: guaic negative??7.?Depression screening? Notes: negative screen?? * Procedure Codes: 8 5607 TEST FOR BLOOD, FECES * Preventive Medicine: Counseling: C are goal follow-up plan: C ounseling for abnormal BMI provided?Yes, A cong Normal BMI Follow-up Anay gonzalez encouragement to exercise. S moking P atient counseled on the dangers of tobacco use and urged to quit. 0 07/17/2024, P atient Lifestyle Goals P atient does not want to quit, T reatment Goals S uggested patient, Cut down by 1 cigarette a week, E xpected Outcome a chieving sustained abstinence from cigarettes, significantly reducing the risk of smoking-related diseases like lung cancer, heart disease, and stroke, experiencing improved lung function, better overall health, and potentially noticing positive changes in taste and smell within a relatively short time frame after quitting, S elf-Managment Goals M nikos a plan to cut down number of cigarettes over time and set a date to work towards quitting, B arriers N ot ready to quit. * * Sign off status: Completed true * Provider: Anay Meier MD Date: 0 07/17/2024 Generated for Geneva corado/Veronica/Lukasransmitting on: 1 03/14/2024 12:26 PM EST History and Physical Notes * HPI (History of Present Illness) Category Sub-Category Detail Notes Category Not es Symptom(s) patient is a 63 yo male here for annual visit with review of recent labs and follow up of chronic issues. Depression Screening PHQ-9 Little inte rest or pleasure in doing things: Not at all Feeling down, depressed, or hopeless: No t at all Trouble falling or staying asleep, or sl eeping too much: Not at all Feeling tired or having little energy: N ot at all Poor appetite or overeating: Not at all Feeling bad about yourself o r that you are a failure, or have let yourself or your family down: Not at all Trouble concentrating on thi ngs, such as reading the newspaper or watching television: Not at all Moving or speaking so slowly that other people could have noticed; or the opposite, being so fidgety or restless that you have been moving around a lot more than usual: Not at all Thoughts that you would be b nikki off or of hurting yourself in some way: Not at all Total Score: 0 Interpretation and Intervention Depression Scree hebert Findings: Negative Follow-Up for Depression: : review of PH Q-9 found negative result, no follow-up needed SDOH Questions SDOH Questions In the past year have you been worried about losing housing?: No In the past year have you or any family members you live with been unable to get any of the following when it was really needed? Check all that apply:: None Fall Risk History Have you had any falls with injury i n the past year?: No Have you had two or more falls in the year?: No Communication Needs Communication Needs Does the patient have a hearing impairment: No Does the patient have a vision impairmen t?: Yes If yes, what is the vision impairment?: Glasses Does the patient have a cognition impair ment?: No Examination Category Sub-Category Detail Notes Category Not es General Examination GENERAL APPEARANCE: well dev eloped, well nourished, in no acute distress HEAD: normocephalic, atrau matic EYES: pupils equal, round, reactive to light and accommodation, sclera non-icteric EARS: normal THROAT: clear NECK/THYROID: neck supple, full ra nge of motion, no cervical lymphadenopathy, no bruits HEART: regular rate and rhy thm, S1, S2 normal, no murmurs LUNGS: clear to auscultatio n bilaterally ABDOMEN: soft, nontender, non distended, bowel sounds present, normal, no organomegaly , no masses palpable NEUROLOGIC: nonfocal, motor stre ngth normal upper and lower extremities, sensory exam intact SKIN: warm and dry, no shelbi picious lesions EXTREMITIES: no clubbing, cyanosi s, or edema MALE GENITOURINARY: uncircumcised, prost ate normal, no testicular mass RECTAL EXAM: normal tone, no exte rnal hemorrhoids, no masses palpable, prostate normal, stool guaiac negative ORAL CAVITY: mucosa moist
--- OUTSIDE RECORDS SUMMARY | 2024-08-05 05:25 | XMS_ITS ---
Author Organization Levy Meier MD Address [address] [place] [phone] Care Team Providers Care Mainstreaming Facilitator Name Role Phone Levy Meier Primary Care Provider REASON FOR VISIT refill Medications Medication SIG (Take, Route, Frequency, Duration) Notes Start Date End Date Status Lisinopril-hydroCHLOROthia zide 10-12.5 MG TAKE 1 TABLET BY MOUTH ONCE DAILY Orally Once a day for 90 days Active Encounters Encounter Location Date Provider Diagnosis Levy Meier MD [address] [facility] [address] [place] [phone] 2024 Levy Meier Essential hypertension I10 Assessments Encounter Date Diagnosis (ICD Code) Assessment Notes Treatment Notes Treatment Clinical Notes Section Notes 2024 Essential hypertension (ICD-10 - I10) Plan Of Treatment Medication Medication Name Sig Start Date Stop Date Notes Lisinopril-hydroCHLOROthiazi de 10-12.5 MG TAKE 1 TABLET BY MOUTH ONCE DAILY Orally Once a day for 90 days Next Appt Details Provider Name:Levy correa, 01/16/2025 10:15:00 AM, [address] [place] [address], [address], [phone], Provider Name:Levy correa, 07/16/2025 07:15:00 AM, [address] [place] [address], [address], [phone], Provider Name:Levy Trotter sunny, 07/23/2025 08:30:00 AM, [address], [address], [place], [phone], Progress Notes * Alexei NICEDOB:1960 (64 yo M)Acc No.[id number]:2024 Patient: Alexei LOPES :1960 A ge:64 Y S ex:Male Address:[facility] , [place] [address] * Refills Refill Lisinopril-hydroCHLOROthiazide Tablet, 10-12.5 MG, Orally, 90, TAKE 1 TABLET BY MOUTH ONCE DAILY, Once a day, 90 days, Refills=3 * true * Date: Generated for Geneva corado/Veronica/Thienitting on: 03/14/2024 12:25 PM EST
--- OUTSIDE RECORDS SUMMARY | 2024-09-18 03:15 | XMS_ITS ---
Author Organization Levy Meier MD Address [address] [facility] [address] [place] [phone] Care Team Providers Care Picker Tender Helper Name Role Phone Levy Meier Primary Care Provider [phone] REASON FOR VISIT repeat PSA in 2 month Encounters Encounter Location Date Provider Diagnosis Levy Meier MD [address] [facility] [address] [place], [place] [phone] 09/18/2024 Levy Meier Plan Of Treatment Next Appt Details Provider Name:Levy correa, 01/16/2025 10:15:00 AM, [address] [place] [address], [address], [phone], Provider Name:Levy Trotter ieclyde, 07/16/2025 07:15:00 AM, [address] [place] [address], [address], [phone], Provider Name:Levy Trotter ier, 07/23/2025 08:30:00 AM, [address] [place] [address], [address], [phone], Progress Notes * Alexei NICEDOB:1960 (64 yo M)Acc No.[id number]:09/18/2024 Progress Note Patient: Debbi Alexei BALLESTEROS Provider: Anay Meier MD :1960 A ge:64 Y S ex:Male Date:09/18/2024 Address:[facility] [address] [id number] Subjective: * Chief Complaints: * 1 . repeat PSA in 2 month. * Medical History: Objective: * Vitals: Assessment: Plan: * Treatment: * * The named appointment provid er may or may not be the originator of this progress note, and it is not deemed complete until electronically signed by the appointment provider. Sign off status: Pending * Provider: Anay Meier MD Date: 0 09/18/2024 Generated for Geneva corado/Veronica/Thienitting on: 1 03/14/2024 12:27 PM EST
--- OUTSIDE RECORDS SUMMARY | 2024-10-17 02:15 | XMS_ITS ---
Author Organization Lvey Meier MD Address [address] [place], [place] [phone] Care Team Providers Care Lead Systems Architect Name Role Phone Levy Meier Primary Care Provider Results Component Value Reference Range Notes Liver Panel Reviewed date:10/18/2024 04:58:05 PM Interpretation: Performing Lab:[facility], [address] [place] [phone] Notes/Report: Bilirubin Total 0.8 0.0-1.0 mg/dL Bilirubin Direct 0.3 0.0-0.5 mg/dL Aspartate Amino Transferase 33 5-37 U/L Alanine Aminotransferase 29 0-40 U/L Total Protein 7.1 6.5-8.0 g/dL Albumin Level 4.4 3.5-5.0 g/dL Alkaline Phosphatase 110 39-117 U/L Lipid Panel Reviewed date:10/17/2024 04:58:13 PM Interpretation: Performing Lab:[facility], [address] [place] [phone] Notes/Report: Triglycerides 106 <150 mg/dL Desirable Triglyceride: less than 150 mg/dL Borderline High Triglyceride 150-199 mg/dL High Triglyceride: 200-499 mg/dL Very High Triglyceride: greater than or equal to 5OO mg/dL Cholesterol 148 <200 mg/dL Desirable Cholesterol: less than 200 mg/dL Borderline High Cholesterol: 200-239 mg/dL High Cholesterol: greater than 239 mg/dL LDL Cholesterol Calculated 88 <100 mg/dL Desirable LDL: less than 100 mg/dL Near Optimal/Above Optimal LDL: 110-129 mg/dL Borderline High LDL: 130-159 mg/dL High LDL: 160-189 mg/dL Very High LDL: greater than or equal to 190 mg/dL HDL Cholesterol 39 >40 mg/dL Desirable HDL: greater than 40 mg/dL Note: This HDL assay may give artificially low results in patients with liver disease. PSA,Total (Free>4and<10) Reviewed date:10/17/2024 04:57:53 PM Interpretation: Performing Lab:[facility], [address] [place] [phone] Notes/Report: PSA,Total (Free>4and<10) 3.01 0.00-4.00 ng/mL A Free PSA was not [...] Lombardi Alinity i Chemiluminescent Microparticle Immunoassay (CMIA) REASON FOR VISIT FASTING LIPID, LIVER PANEL, PSA Encounters Encounter Location Date Provider Diagnosis Levy Meier MD [address] [place] [address] [place] [phone] 10/17/2024 Levy Meier Pure hypercholestero lemia E78.00 ; Elevated LFTs R79.89 and Elevated PSA R97.20 Assessments Encounter Date Diagnosis (ICD Code) Assessment Notes Treatment Notes Treatment Clinical Notes Section Notes 10/17/2024 Pure hypercholesterolemia (ICD-10 - E78.00) 10/17/2024 Elevated LFTs (ICD-1 0 - R79.89) 10/17/2024 Elevated PSA (ICD-10 - R97.20) Plan Of Treatment Next Appt Details Provider Name:Levy correa, 01/16/2025 10:15:00 AM, [address] [place] [address], [address], [place], [place], [phone], Provider Name:Levy Trotter ier, 07/16/2025 07:15:00 AM, [address], [address], [place], [phone], Provider Name:Levy Trotter ier, 07/23/2025 08:30:00 AM, [address], [address], [place], [phone], Progress Notes * Alexei NICEDOB:1960 (64 yo M)Acc No.[id number]:10/17/2024 Progress Note Patient: Alexei LOPES Provider: Anay Meier MD :1960 A ge:64 Y S ex:Male Date:10/17/2024 Address:[facility] Subjective: * Chief Complaints: * 1 . FASTING LIPID, LIVER PANEL, PSA. * Medical History: Objective: * Vitals: Assessment: * Assessment: 1. P ure hypercholesterolemia - E78.00 (Primary) 2 . E levated LFTs - R79.89 3 . E levated PSA - R97.20 Plan: * Treatment: 2. E levated PSA L AB: PSA,Total (Free>4and<10) (Collection Date & Time - 10/17/2024 07:15 AM) * Procedure Codes: 3 6415 VENIPUNCT, ROUTINE* * * The named appointment provid er may or may not be the originator of this progress note, and it is not deemed complete until electronically signed by the appointment provider. Sign off status: Pending * Provider: Anay Meier MD Date: 0 10/17/2024 Generated for Geneva corado/Veronica/Dellsmitting on: 03/14/2024 12:27 PM EST
--- OUTSIDE RECORDS SUMMARY | 2024-11-13 09:26 | XMS_ITS ---
Author Organization Levy Meier MD Address [address] [facility] [address] [place] [phone] Care Team Providers Care Staff Toxicologist Name Role Phone Levy Meier Primary Care Provider REASON FOR VISIT refill Medications Medication SIG (Take, Route, Frequency, Duration) Notes Start Date End Date Status Atorvastatin Calcium 20 MG TAKE 1 TABLET BY MOUTH ONCE DAILY Orally Once a day for 90 days Active Encounters Encounter Location Date Provider Diagnosis Levy Meier MD [address] [place] [address] [place] [phone] 11/13/2024 Levy Meier Elevated LFTs R79.89 Assessments Encounter Date Diagnosis (ICD Code) Assessment Notes Treatment Notes Treatment Clinical Notes Section Notes 11/13/2024 Elevated LFTs (ICD-10 - R79.89) Plan Of Treatment Medication Medication Name Sig Start Date Stop Date Notes Atorvastatin Calcium 20 MG TAKE 1 TABLET BY MOUTH ONCE DAILY Orally Once a day for 90 days Next Appt Details Provider Name:Levy correa, 01/16/2025 10:15:00 AM, [address] [place] [address], [address], [phone], Provider Name:Levy correa, 07/16/2025 07:15:00 AM, [address] [place] [address], [phone], Provider Name:Levy Ramirezgypsy sunny, 07/23/2025 08:30:00 AM, [address], [address], [place], [place], [phone], Progress Notes * Alexei NICEDOB:1960 (64 yo M)Acc No.[id number]:11/13/2024 Patient: Alexei LOPES :1960 A ge:64 Y S ex:Male Address:[facility] [place] [address] * Refills Refill Atorvastatin Calcium Tablet, 20 MG, Orally, 90, TAKE 1 TABLET BY MOUTH ONCE DAILY, Once a day, 90 days, Refills=3 * true * Date: Generated for Geneva corado/Veronica/Sammie on: 03/14/2024 12:26 PM EST
--- OUTSIDE RECORDS SUMMARY | 2025-01-12 02:15 | XMS_ITS ---
Author Organization Leyv Meier MD Address [address] [place], [place] [phone] Care Team Providers Care Volunteer Recruiter Name Role Phone Levy Meier Primary Care Provider [phone] Results Component Value Reference Range Notes Liver Panel Reviewed date:01/12/2025 12:00:47 PM Interpretation: Performing Lab:[address] [phone] Notes/Report: Bilirubin Total 0.8 0.0-1.0 mg/dL Bilirubin Direct 0.3 0.0-0.5 mg/dL Aspartate Amino Transferase 46 5-37 U/L Alanine Aminotransferase 52 0-40 U/L Total Protein 7.0 6.5-8.0 g/dL Albumin Level 4.5 3.5-5.0 g/dL Alkaline Phosphatase 116 39-117 U/L Glucose Fasting Reviewed date:01/12/2025 12:00:57 PM Interpretation: Performing Lab:[address] [phone] Notes/Report: Glucose Fasting 116 60-99 mg/dL A fasting glucose from 100-125 mg/dl is considered impaired (pre-diabetes). Lipid Panel with Reflex Reviewed date:01/12/2025 12:09:22 PM Interpretation: Performing Lab:[facility], [address] [place] [phone] Notes/Report: Triglycerides 68 <150 mg/dL Desirable Triglyceride: less than 150 mg/dL Borderline High Triglyceride 150-199 mg/dL High Triglyceride: 200-499 mg/dL Very High Triglyceride: greater than or equal to 5OO mg/dL Cholesterol 151 <200 mg/dL Desirable Cholesterol: less than 200 mg/dL Borderline High Cholesterol: 200-239 mg/dL High Cholesterol: greater than 239 mg/dL LDL Cholesterol Calculated 95 <100 mg/dL Desirable LDL: less than 100 mg/dL Near Optimal/Above Optimal LDL: 110-129 mg/dL Borderline High LDL: 130-159 mg/dL High LDL: 160-189 mg/dL Very High LDL: greater than or equal to 190 mg/dL HDL Cholesterol 43 >40 mg/dL Desirable HDL: greater than 40 mg/dL Note: This HDL assay may give artificially low results in patients with liver disease. Hemoglobin A1c Reviewed date:01/12/2025 12:00:36 PM Interpretation: Performing Lab:[facility], [address] [place] [phone] Notes/Report: Hemoglobin A1c % 5.9 <6.0 % Hemoglobin A1C Reference Range Adults: 4.8 - 6.0 % Non diabetic: < 6.0 % Goal: < 7.0 % Additional Action Suggested: > 8.0 % Note: Hemoglobin A1c results are invalid for patients with abnormal amounts of HbF. Blood transfusions may impact the HbA1c concentration in the patient sample. Estimated Average Glucose 123 eAG = Estimated average glucose which is %A1C expressed as average glucose, using the formula of the [id number] Average Glucose study (ADAG), Diabetes Care, Vol.31,#8, Oct. 2007 REASON FOR VISIT FASTING LIPID, LIVER PANEL Encounters Encounter Location Date Provider Diagnosis Levy Meier MD [address] [place], [place] [phone] 01/12/2025 Levy Meier Prediabetes R73.09 a nd Pure hypercholesterolemia E78.00 Assessments Encounter Date Diagnosis (ICD Code) Assessment Notes Treatment Notes Treatment Clinical Notes Section Notes 01/12/2025 Prediabetes (ICD-10 - R73.09) 01/12/2025 Pure hypercholesterolemia (ICD-10 - E78.00) Plan Of Treatment Next Appt Details Provider Name:Levy Trotter ier, 01/16/2025 10:15:00 AM, [address], [address], [place], [place], [phone], Provider Name:Levy Trotter ier, 07/16/2025 07:15:00 AM, [address] [facility], [address], [place], [place], [phone], Provider Name:Levy Trotter ier, 07/23/2025 08:30:00 AM, [address], [address], [place], [place], [phone], Progress Notes * Alexei NICEDOB:1960 (64 yo M)Acc No.[id number]:01/12/2025 Progress Note Patient: Alexei LOPES Provider: Anay Meier MD :1960 A ge:64 Y S ex:Male Date:01/12/2025 Address:[id number] Subjective: * Chief Complaints: * 1 . FASTING LIPID, LIVER PANEL. * Medical History: Objective: * Vitals: Assessment: * Assessment: 1. P rediabetes - R73.09 (Primary) 2 . P ure hypercholesterolemia - E78.00? Plan: * Treatment: 2. P ure hypercholesterolemia L AB: Liver Panel (Collection Date & Time - 01/12/2025 07:15 AM) L AB: Glucose Fasting (Collection Date & Time - 01/12/2025 07:15 AM) L AB: Lipid Panel with Reflex (Collection Date & Time - 01/12/2025 07:15 AM) L AB: Hemoglobin A1c (Collection Date & Time - 01/12/2025 07:15 AM) * Procedure Codes: 3 6415 VENIPUNCT, ROUTINE* * * The named appointment provid er may or may not be the originator of this progress note, and it is not deemed complete until electronically signed by the appointment provider. Sign off status: Pending * Provider: Anay Meier MD Date: 03/14/2024 Generated for Printi ng/Faxing/eTransmitting on: 03/14/2024 12:25 PM EST
[2025-01-12 11:01] LABS: Alanine Aminotransferase 52 U/L (0-40); Albumin Level 4.5 g/dL (3.5-5.0); Alkaline Phosphatase 116 U/L (39-117); Aspartate Amino Transferase 46 U/L (5-37); Cholesterol 151 mg/dL (<200); HDL Cholesterol 43 mg/dL (>40); Total Protein 7.0 g/dL (6.5-8.0); Triglycerides 68 mg/dL (<150)
[2025-01-12 11:53] LABS: Reflex LDLD? No
--- OUTSIDE RECORDS SUMMARY | 2025-01-12 12:26 | XMS_ITS | Patient Health Record ---
Author Organization [facility] Address [address] [place] [phone] Care Team Providers Care Ground Products Director Name Role Phone Cesar Reyes Jr Reason For Referral No Information Plan Of Treatment No Information
--- OUTSIDE RECORDS SUMMARY | 2025-01-12 12:26 | XMS_ITS | Patient Health Record ---
Author Organization Levy Meier MD Address [address] [place], [place] [id number] Care Team Providers Care Ict Quality Assurance Engineer Name Role Phone Levy Meier Primary Care Provider [phone] Allergies No Known Allergies Results Component Value Reference Range Notes Complete Blood Count Auto Di ff Reviewed date:07/10/2024 05:07:35 PM Interpretation: Performing Lab:[facility], [address] [place] [phone] Notes/Report: White Blood Count 8.3 4.8-10.8 X10*3/uL [...] NRBC Abs Auto 0.000 0.0-0.012 X10*3/uL Comprehensive [place]. Panel Fa Reviewed date:07/10/2024 04:55:45 PM Interpretation: Performing Lab:[address] [phone] Notes/Report: Sodium 138 135-145 mmol/L Potassium 4.3 [...] Panel Reviewed date:07/10/2024 04:57:10 PM Interpretation: Performing Lab:[facility], [address] [place] [phone] Notes/Report: Triglycerides 123 <150 mg/dL Desirable Triglyceride: [...] (Free>4and<10) Reviewed date:10/24/2024 12:51:45 PM Interpretation:10-17-2024 Performing Lab:[facility], [address] [place] [phone] Notes/Report: PSA,Total (Free>4and<10) 3.85 0.00-4.00 ng/mL A [...] Random Reviewed date:07/10/2024 04:56:48 PM Interpretation: Performing Lab:[facility], [address] [place] [phone] Notes/Report: Creatinine Urine 106.62 Microalbumin Urine 17.0 Microalbum/Creatinine Ratio Ur 15.9 <30 ug/mg cr Albumin/Creatinine Ratio Reference Ranges: Normal: < 30 ug/mg creatinine Microalbuminuria: 30 - 300 ug/mg creatinine Clinical Albuminuria: > 300 ug/mg creatinine Hemoglobin A1c Reviewed date:07/10/2024 04:54:25 PM Interpretation: Performing Lab:[facility], [address] [place] [phone] Notes/Report: Hemoglobin A1c % 6.2 <6.0 % [...] average glucose, using the formula of the V3D-Srgwopz Average Glucose study (ADAG), Diabetes Care, Vol.31,#8, Oct. 2007 UA ClnCatch+Micro w/rflx Cul t Reviewed date:07/10/2024 05:07:53 PM Interpretation: Performing Lab:[facility], [address] [place] [phone] Notes/Report: Urine, Clean Catch Color Urine Yellow Appearance Urine Clear PH 5.5 5.0-9.0 Glucose Urine UA Negative Negative mg/dL Urine Blood Negative Negative Specific Ste[place]s - Urine 1.015 1.005-1.025 Urine Protein Negative Neg-Trace mg/dL Urine Ketones Negative Negative mg/dL Nitrite Urine Negative Negative Leukocyte Esterase Urine Negative Negative RBC Urine 0-2 0-2 /HPF WBC Urine 0-5 0-5 /HPF Squamous Epithelial Cell Urine 0-2 0-2 /HPF Bacteria Urine None Seen None Seen Hyaline Casts Urine 0-2 0-2 /LPF Liver Panel Reviewed date:10/18/2024 04:58:05 PM Interpretation: Performing Lab:[facility], [address] [place] [phone] Notes/Report: Bilirubin Total 0.8 0.0-1.0 mg/dL Bilirubin Direct 0.3 0.0-0.5 mg/dL Aspartate Amino Transferase 33 5-37 U/L Alanine Aminotransferase 29 0-40 U/L Total Protein 7.1 6.5-8.0 g/dL Albumin Level 4.4 3.5-5.0 g/dL Alkaline Phosphatase 110 39-117 U/L Lipid Panel Reviewed date:10/17/2024 04:58:13 PM Interpretation: Performing Lab:[facility], [address] [place] [phone] Notes/Report: Triglycerides 106 <150 mg/dL Desirable Triglyceride: [...] (Free>4and<10) Reviewed date:10/17/2024 04:57:53 PM Interpretation: Performing Lab:[facility], [address] [place] [phone] Notes/Report: PSA,Total (Free>4and<10) 3.01 0.00-4.00 ng/mL A [...] Lombardi Alinity i Chemiluminescent Microparticle Immunoassay (CMIA) Liver Panel Reviewed date:01/12/2025 12:00:47 PM Interpretation: Performing Lab:[facility], [address] [place] [phone] Notes/Report: Bilirubin Total 0.8 0.0-1.0 mg/dL Bilirubin Direct 0.3 0.0-0.5 mg/dL Aspartate Amino Transferase 46 5-37 U/L Alanine Aminotransferase 52 0-40 U/L Total Protein 7.0 6.5-8.0 g/dL Albumin Level 4.5 3.5-5.0 g/dL Alkaline Phosphatase 116 39-117 U/L Glucose Fasting Reviewed date:01/12/2025 12:00:57 PM Interpretation: Performing Lab:[facility], [address] [place] [phone] Notes/Report: Glucose Fasting 116 60-99 mg/dL A fasting glucose from 100-125 mg/dl is considered impaired (pre-diabetes). Lipid Panel with Reflex Reviewed date:01/12/2025 12:09:22 PM Interpretation: Performing Lab:[facility], [address] [place] [phone] Notes/Report: Triglycerides 68 <150 mg/dL Desirable Triglyceride: [...] A1c Reviewed date:01/12/2025 12:00:36 PM Interpretation: Performing Lab:[facility], [address] [place] [phone] Notes/Report: Hemoglobin A1c % 5.9 <6.0 % [...] average glucose, using the formula of the Y4E-Jmdtbdg Average Glucose study (ADAG), Diabetes Care, Vol.31,#8, Oct. 2007 Occult Blood, Stool, Guaiac Reviewed date:07/17/2024 10:53:42 AM Interpretation:Negative Performing Lab: Notes/Report: Negative Occult Blood, Stool, Guaiac Neg Alie Godwin Reviewed date:01/12/2025 11:45:49 AM Interpretation: Performing Lab:[facility], [address] [place] [phone] Notes/Report: Alie Godwin See Note Specimen held untested for 24 hours; Call to request Chemistry testing. Reason For Referral No Information Medications Medication SIG (Take, Route, Frequency, Duration) Notes Start Date End Date Status Lisinopril-hydroCHLOROthi azide 10-12.5 MG TAKE 1 TABLET BY MOUTH ONCE DAILY Orally Once a day for 90 days Active Aspir-Low 81 MG 1 tablet Orally Once a day for 30 day(s) Active Atorvastatin Calcium 20 MG TAKE 1 TABLET BY MOUTH ONCE DAILY Orally Once a day for 90 days Active oxyCODONE HCl 5 MG 1 tablet as needed Orally every 6 hrs Not-Taking Gabapentin 100 MG 1 capsule Orally Thr ee times a day for 30 day(s) Not-Taking Ibuprofen 800 MG 1 tablet Orally Thre e times a day for 14 days 03/30/2016 Not-Taki ng Immunizations Vaccine Route Administration Date Status Comme nts Flu Vaccine Unknown 11/25/2012 Administered Flu Vaccine Unknown 11/17/2014 Administered [place] [employer] at work Flu Vaccine Unknown 11/24/2015 Administered pt was give n the vaccine at work. Fluarix Quadrivalent Unknown 12/07/2016 Administered [employer] Fluarix Quadrivalent Unknown 12/31/2017 Administered at work Fluarix Quadrivalent Unknown 01/05/2019 Administered CV S Fluarix Quadrivalent Unknown 12/10/2020 Administered SARS-COV-2 Moderna Unknown 07/20/2020 Administered SARS-COV-2 Moderna Unknown 08/17/2020 Administered SARS-COV-2 Moderna Unknown 02/16/2021 Administered Fluarix Quadrivalent Unknown 12/14/2021 Administered CV S DECLINED, FLU Unknown 01/23/2014 Refused PPSV23 (Pnemovax) Unknown 03/30/2016 Refused Social History Tobacco Use: Social History Observation [...] to kit t Additional Findings: Tobacco User Curren t cigarette smoker, not currently using another form of tobacco Alcohol Screen Question Answer Notes Did you have a drink containing alcohol in the p ast year? No Points 0 Interpretation Negative Problems Problem Type SNOMED Code ICD Code Onset Dates Problem Status W/U Status Risk Notes Problem 855526803 Body mass index (BMI) 33.0-33.9, adult (Z68.33) Active confirmed Problem 68811570 Smoker (F17.200) Active confirmed Problem 29432859 Essential hypert ension (I10) Active confirmed Problem 8159274 Prediabetes (R73.09) Active confirmed Problem 557123928 Chronic obstruct seven bronchitis without exacerbation (J44.9) Active confirmed Problem 809036391 Pure hypercholesterolemia (E78.00) Active confirmed Problem 245892292 Tobacco use diso rder (F17.200) Active confirmed Vital Signs Blood pressure diastolic 76 mm Hg 07/17/2024 len ght is up 2 pounds since 01-17-24 Height 67 in 07/17/2024 weight is up 2 pounds since 01-17-24 Blood pressure systolic 118 mm Hg 07/17/2024 weig ht is up 2 pounds since 01-17-24 Weight 230 lbs 07/17/2024 weight is up 2 pounds since 01-17-24 BMI 36.02 kg/m2 07/17/2024 weight is up 2 pounds since 01-17-24 Encounters Encounter Location Date Provider Diagnosis Levy Meier MD [address] [place] [id number] 07/10/2024 Levy Meier Blood tests for rout ine general physical examination Z00.00 ; Essential hypertension I10 ; Prediabetes R73.09 and Pure hypercholesterolemia E78.00 Levy Meier MD [address] [place] [id number] 10/17/2024 Levy Meier Pure hypercholestero lemia E78.00 ; Elevated LFTs R79.89 and Elevated PSA R97.20 Levy Meier MD [address] [place] [id number] 01/12/2025 Levy Meier Prediabetes R73.09 a nd Pure hypercholesterolemia E78.00 Levy Meier MD [address] [place] [id number] 01/17/2024 Levy Meier Synovial cyst M71.30 ; Pure hypercholesterolemia E78.00 ; Prediabetes R73.09 and Essential hypertension I10 Levy Meier MD [address] [place] [id number] 07/17/2024 Levy Meier Elevated PSA R97.20 ; Adult general medical examination Z00.00 ; Elevated LFTs R79.89 ; Essential hypertension I10 ; Prediabetes R73.09 ; Smoker F17.200 ; Colon cancer screening Z12.11 and Depression screening Z13.31 Levy Meier MD [address] [place] [id number] 05/05/2024 Levy Meier Essential hypertensi on I10 Levy Meier MD [address] [place] [id number] 05/30/2024 Levy Meier Pure hypercholestero lemia E78.00 Levy Meier MD [address] [place] [id number] 2024 Levy Meier Essential hypertensi on I10 Levy Meier MD [address] [id number] 11/13/2024 Levy Meier Elevated LFTs R79.89 Assessments Encounter Date Diagnosis (ICD Code) Assessment Notes Treatment Notes Treatment Clinical Notes Section Notes 07/10/2024 Blood tests for rout ine general physical examination (ICD-10 - Z00.00) 10/17/2024 Pure hypercholesterolemia (ICD-10 - E78.00) 01/12/2025 Prediabetes (ICD-10 - R73.09) 01/17/2024 Synovial cyst (ICD-1 0 - M71.30) no treatment needed 01/17/2024 Pure hypercholesterolemia (ICD-10 - E78.00) labs reviewed, will continue current regiment 07/17/2024 Elevated PSA (ICD-10 - R97.20) will continue to monitor, future lab pending 07/17/2024 Adult general medica l examination (ICD-10 - Z00.00) labs reviewed and discussed with patient 05/05/2024 Essential hypertensi on (ICD-10 - I10) 05/30/2024 Pure hypercholesterolemia (ICD-10 - E78.00) 2024 Essential hypertensi on (ICD-10 - I10) 11/13/2024 Elevated LFTs (ICD-1 0 - R79.89) 07/10/2024 Essential hypertensi on (ICD-10 - I10) 10/17/2024 Elevated LFTs (ICD-1 0 - R79.89) 01/12/2025 Pure hypercholesterolemia (ICD-10 - E78.00) 01/17/2024 Prediabetes (ICD-10 - R73.09) continue with weight loss, no meds needed at this time 07/17/2024 Elevated LFTs (ICD-1 0 - R79.89) decrease atorvastin to 20 mg, patient verbalized instructions to decrease medication, will comnitor with future labs 07/10/2024 Prediabetes (ICD-10 - R73.09) 10/17/2024 Elevated PSA (ICD-10 - R97.20) 01/17/2024 Essential hypertensi on (ICD-10 - I10) stable, will continue current regiment 07/17/2024 Essential hypertensi on (ICD-10 - I10) stable, will continue current regiment 07/10/2024 Pure hypercholesterolemia (ICD-10 - E78.00) 07/17/2024 Prediabetes (ICD-10 - R73.09) stable, no need for medication at this time 07/17/2024 Smoker (ICD-10 - F17.200) 07/17/2024 Colon cancer screeni ng (ICD-10 - Z12.11) guaic negative 07/17/2024 Depression screening (ICD-10 - Z13.31) negative screen Plan Of Treatment Pending Test Test Name Order Date Electrocardiogram (EKG) 03/30/2016 Electrocardiogram (EKG) 04/17/2017 Electrocardiogram (EKG) 04/25/2019 Next Appt Details Provider Name:Levy Trotter ier, 01/16/2025 10:15:00 AM, [address], [address], [place], [place], [id number], Provider Name:Levy Trotter ier, 07/16/2025 07:15:00 AM, [address], [address], [place], [place], [phone], Provider Name:Levy Trotter ier, 07/23/2025 08:30:00 AM, [address], [address], [place], [place], [phone], Insurance Providers Payer Name Payer Address Payer Phone Subscriber Number Group Number Insured Name Patient Relationship to Insured Coverage Start Date Coverage End Date [employer] [facility] [address] [place], [place] [id number] [phone] [id number] Alexei Nice Self - patient is the insured Medical (General) History Medical History History ICD Code colonoscopy 01/11/2007 neg re peat in 10 years (Dr. Reyes); patient wants to wait until he''''s 59 Low HDL (under 40) E78.6 Low HDL (under 40)
== END 2025-01-12 10:25 | disposition home or self-care (01) ==
LOC: HO.LNP 10:24
PROVIDERS: Visit Provider Internal Medicine
DX: R73.09 Other abnormal glucose (principal); E78.00 Pure hypercholesterolemia, unspecified
CPT/HCPCS: 80061; 80076; 82947; 83036